=== PATIENT | female | born 1995 | race Caucasian/White ===

== ENCOUNTER 2017-12-10 21:16 | Emergency (ER) | payer BC ==
[2017-12-10] MEDS ORDERED: NA CHLORIDE 0.9% 1,000 ML ONE ×2 (21:54→23:34)
[2017-12-10] MEDS ORDERED: PROMETHAZINE 25 MG/ML VIAL ONE (21:54)
[2017-12-10 22:10] LABS: Absolute Lymphocytes (CBC) 1.6 K/uL (0.7-4.9); Absolute Monocytes 0.5 K/uL (0.1-1.3); Absolute Neutrophil 4.9 K/uL (1.8-8.0); Basophils % 0.3 % (0-1.3); Eosinophils % 0.5 % (0-4.4); Hematocrit 32.9 % (36.0-45.0); Lymphocytes % 22.6 % (15.3-44.8); MCH 33.5 pg (27.0-35.0); MCV 95.5 fL (80-100); MPV 8.9 fL (7.6-11.3); Monocytes % 6.7 % (3.3-12.3); RBC Red Blood Cell Count 3.44 M/uL (3.86-4.86)
[2017-12-10 22:24] LABS: ALT/SGPT 32 U/L (12-78); AST/SGOT 18 U/L (15-37); Albumin 3.2 g/dL (3.4-5.0); Alkaline Phosphatase 52 U/L (45-117); BUN Blood Urea Nitrogen 8 mg/dL (7-18); Bicarbonate 22 mmol/L (21-32); Bilirubin Direct 0.2 mg/dL (0-0.2); Bilirubin Total 0.6 mg/dL (0.2-1.0); Glucose Level 100 mg/dL (74-106); Potassium 3.8 mmol/L (3.5-5.1); Protein, Total 6.2 g/dL (6.4-8.2); Sodium Level 141 mmol/L (136-145)
--- NOTE | 2017-12-11 01:09 | ER ---
Nurse's Notes [facility] Name: Jacey Elias Age: 22 yrs Sex: Female : 1995 Arrival Date: 12/10/2017 Time: 21:22 Bed 16 Private MD: Davon Pastor Diagnosis: Upper abdominal pain, unspecified; state;Vomiting, unspecified Presentation: 12/10 21:35 Presenting complaint: states: she started having really bad abdominal pain kr2 earlier today, she was seen in [facility] twice because she is 27 weeks , they initially thought she was having contractions but then said she was not. They sent us here because she has had weight loss surgery in the past and thought it may be something to do with that. She hasn't had any bleeding or spotting. Transition of care: patient was not received from another setting of care. Onset of symptoms was December 10, 2017. Risk Assessment: Do you want to hurt yourself or someone else? Patient reports no desire to harm self or others. Initial Sepsis Screen: Does the patient meet any 2 criteria? No. Patient's initial sepsis screen is negative. Does the patient have a suspected source of infection? No. Patient's initial sepsis screen is negative. Care prior to arrival: seen by [facility], per , "They told us the baby looked good". 21:35 Method Of Arrival: Wheelchair kr2 21:35 Acuity: RASHAWN 3 kr2 LEAVE COORDINATOR: 21:41 2, Living 0 kr2 Historical: - Allergies: 21:39 No Known Allergies; kr2 - Home Meds: 21:39 Iron CR Oral [Active]; kr2 - PMHx: 21:45 None; cc3 - PSHx: 21:39 weight loss surgery; kr2 - Immunization history:: Adult Immunizations up to date. - Social history:: Smoking status: Patient/guardian denies using tobacco. - Ebola Screening: : No symptoms or risks identified at this time. Screenin:45 Abuse screen: Denies threats or abuse. Denies injuries from another. Nutritional cc3 screening: No deficits noted. Tuberculosis screening: No symptoms or risk factors identified. Fall Risk Ambulatory Aid- None/Bed Rest/Nurse Assist (0 pts). Gait- Normal/Bed Rest/Wheelchair (0 pts) Mental Status- Oriented to own ability (0 pts). Assessment: 21:42 Reassessment: Provider ANTONETTE Ward notified of patient status. kr2 21:45 General: Appears distressed, uncomfortable, Behavior is cooperative. Pain: Complains of cc3 pain in bilateral upper abdominal pain Pain currently is 10 out of 10 on a pain scale. Quality of pain is described as aching. Neuro: Level of Consciousness is awake, alert, obeys commands, Oriented to person, place, time, situation, Appropriate for age. Cardiovascular: Denies chest pain. Respiratory: Airway is patent Respiratory effort is even, unlabored, Respiratory pattern is regular, symmetrical. GI: Abd is soft Abdomen is tender to palpation X 4 quads. : No signs and/or symptoms were reported regarding the genitourinary system. EENT: No signs and/or symptoms were reported regarding the EENT system. Derm: No signs and/or symptoms reported regarding the dermatologic system. Musculoskeletal: Circulation, motion, and sensation intact. Range of motion: intact in all extremities. 21:45 GI: Bowel sounds present X 4 quads. cc3 22:45 Reassessment: Patient appears in no apparent distress at this time. Patient and/or cc3 family updated on plan of care and expected duration. Pain level reassessed. Patient is alert, oriented x 3, equal unlabored respirations, skin warm/dry/pink. 23:10 Reassessment: Patient appears in no apparent distress at this time. Patient and/or cc3 family updated on plan of care and expected duration. Pain level reassessed. Patient is alert, oriented x 3, equal unlabored respirations, skin warm/dry/pink. Patient comfortably sleeping, kept undisturbed. 12/11 00:30 Reassessment: Patient appears in no apparent distress at this time. Patient and/or cc3 family updated on plan of care and expected duration. Pain level reassessed. Patient is alert, oriented x 3, equal unlabored respirations, skin warm/dry/pink. 01:08 Reassessment: Patient appears in no apparent distress at this time. Patient and/or cc3 family updated on plan of care and expected duration. Pain level reassessed. Patient is alert, oriented x 3, equal unlabored respirations, skin warm/dry/pink. Patient for transfer to [facility] for higher level of care. 01:20 Reassessment: Patient appears in no apparent distress at this time. Patient and/or cc3 family updated on plan of care and expected duration. Pain level reassessed. Patient is alert, oriented x 3, equal unlabored respirations, skin warm/dry/pink. Report called to RN Shobha Carey. Called EMS for transport. 02:30 Reassessment: Patient and/or family updated on plan of care and expected duration. Pain cc3 level reassessed. Patient is alert, oriented x 3, equal unlabored respirations, skin warm/dry/pink. [facility] came for transport, patient left ER vitally stable by ambulance stretcher with her . Vital Signs: 12/10 21:41 Resp 20; Temp 98.9(O); Pulse Ox 99% on R/A; Weight 80.29 kg; Height 5 ft. 8 in. (172.72 kr2 cm); Pain 10/10; 22:30 BP 117 / 40; Pulse 66; Resp 20 S; Pulse Ox 99% on R/A; cc3 23:15 BP 108 / 67; Pulse 59; Resp 16 S; Pulse Ox 100% on R/A; Pain 6/10; cc3 12/11 00:03 BP 102 / 66; Pulse 66; Resp 17 S; Pulse Ox 100% on R/A; cc3 01:20 BP 108 / 68; Pulse 61; Resp 17; Pulse Ox 100% on R/A; cc3 02:20 BP 105 / 57; Pulse 60; Resp 18 S; Pulse Ox 98% on R/A; cc3 12/10 21:41 Body Mass Index 26.91 (80.29 kg, 172.72 cm) kr2 ED Course: 12/10 21:22 Patient arrived in ED. am2 21:22 Davon Pastor MD is Private Physician. am2 21:37 Triage completed. kr2 21:39 Mercy Moraes FNP-C [facility]. snw 21:39 Prahsanth Naik MD is Attending Physician. snw 21:43 Cira Arenas is Primary Nurse. cc3 21:45 Arm band placed on left wrist. cc3 21:45 Patient has correct armband on for positive identification. Placed in gown. Bed in low cc3 position. Call light in reach. Side rails up X 1. Adult w/ patient. potline monitor on. Pulse ox on. NIBP on. 21:50 Inserted saline lock: 20 gauge in right antecubital area, using aseptic technique. cc3 Blood collected. 12/11 02:30 No provider procedures requiring assistance completed. Patient transferred, IV remains cc3 in place. Administered Medications: 12/10 21:55 Drug: NS 0.9% 1000 ml Route: IV; Rate: 1 bolus; Site: right antecubital; cc3 23:00 Follow up: Response: No adverse reaction; IV Status: Completed infusion; IV Intake: cc3 1000ml 21:55 Drug: Phenergan 12.5 mg Route: IVP; Site: right antecubital; cc3 23:00 Follow up: Response: No adverse reaction; Vomiting decreased cc3 23:29 Drug: NS 0.9% 1000 ml Route: IV; Rate: 1 bolus; Site: right antecubital; cc3 12/11 00:30 Follow up: Response: No adverse reaction; IV Status: Completed infusion; IV Intake: cc3 1000ml Intake: 12/10 23:00 IV: 1000ml; Total: 1000ml. cc3 12/11 00:30 IV: 1000ml; Total: 2000ml. cc3 Outcome: 01:08 ER care complete, transfer ordered by MD. snw 02:30 Transferred by ground EMS Transfer form completed. Note: [address] 02:30 Condition: stable 02:30 Instructed on the need for transfer, Demonstrated understanding of instructions. 02:41 Patient left the ED. 3 Signatures: Mercy Moraes, SKIP-C DOOR MANAGER-Langw Rosibel Ramos am2 Federica Corrigan, GAUTAM RN [email or web address] Cira Arenas 3 Corrections: (The following items were deleted from the chart) 12/10 21:40 21:35 Presenting complaint: states: she started having really bad abdominal kr2 pain earlier today, she was seen in [facility] twice, they initially thought she was having contractions but then said she was not. They sent us here because she has had weight loss surgery in the past and thought it may be something to do with that. She hasn't had any bleeding or spotting kr2 21:42 21:41 2, Living 0 kr2 kr2 11/01 01:59 01:20 Reassessment: Patient appears in no apparent distress at this time. Patient cc3 and/or family updated on plan of care and expected duration. Pain level reassessed. Patient is alert, oriented x 3, equal unlabored respirations, skin warm/dry/pink. Report called to GAUTAM Carey. cc3 02:00 12/10 00:10 Reassessment: Patient appears in no apparent distress at this time. Patient cc3 and/or family updated on plan of care and expected duration. Pain level reassessed. Patient is alert, oriented x 3, equal unlabored respirations, skin warm/dry/pink. cc3 12/11 02:55 02:30 Reassessment: Patient and/or family updated on plan of care and expected cc3 duration. Pain level reassessed. Patient is alert, oriented x 3, equal unlabored respirations, skin warm/dry/pink. [facility] came for transport. cc3 02:57 12/10 23:15 BP 108 / 67; Pulse 59bpm; Resp 16bpm; Spontaneous; Pulse Ox 100% RA; cc3 cc3
--- NOTE | 2017-12-11 01:09 | EDPHYS ---
Physician Documentation [facility] Name: Jacey Elias Age: 22 yrs Sex: Female : 1995 Arrival Date: 12/10/2017 Time: 21:22 Bed 16 Private MD: Davon Pastor ED Physician Prashanth Naik HPI: 12/10 23:10 This 22 yrs old Female presents to ER via Wheelchair with complaints of snw Abdominal Pain, Vomiting - . 23:10 The patient presents with abdominal pain in the epigastric area. Onset: The snw symptoms/episode began/occurred gradually. The symptoms do not radiate. The symptoms are described as crampy, steady. Severity of pain: At its worst the pain was moderate. The patient has experienced a previous episode. 27 wk IUP, feeling baby move. No vaginal bleeding or discharge. No fever. Pt has had gastric surgery in the past and had a complication x 1. Concerned for recurrence of problem but I am unable to CT pt second to . VISCOSITY INSPECTOR: 21:41 2, Living 0 kr2 Historical: - Allergies: 21:39 No Known Allergies; kr2 - Home Meds: 21:39 Iron CR Oral [Active]; kr2 - PMHx: 21:45 None; cc3 - PSHx: 21:39 weight loss surgery; kr2 - Immunization history:: Adult Immunizations up to date. - Social history:: Smoking status: Patient/guardian denies using tobacco. - Ebola Screening: : No symptoms or risks identified at this time. ROS: 23:09 Constitutional: Negative for fever, chills, and weight loss, Eyes: Negative for injury, snw pain, redness, and discharge, ENT: Negative for injury, pain, and discharge, Neck: Negative for injury, pain, and swelling, Cardiovascular: Negative for chest pain, palpitations, and edema, Respiratory: Negative for shortness of breath, cough, wheezing, and pleuritic chest pain, Back: Negative for injury and pain, : Negative for injury, bleeding, discharge, and swelling, MS/Extremity: Negative for injury and deformity, Skin: Negative for injury, rash, and discoloration, Neuro: Negative for headache, weakness, numbness, tingling, and seizure. 23:09 Abdomen/GI: Positive for abdominal pain, nausea and vomiting. Exam: 22:40 Abdomen/GI: vomiting s/p phenergan with c/o upper abdominal pain, curled in ball on snw stretcher. Pale. 2nd Liter NS ordered. 23:09 Head/Face: Normocephalic, atraumatic. Eyes: Pupils equal round and reactive to light, snw extra-ocular motions intact. Lids and lashes normal. Conjunctiva and sclera are non-icteric and not injected. Cornea within normal limits. Periorbital areas with no swelling, redness, or edema. ENT: Nares patent. No nasal discharge, no septal abnormalities noted. Tympanic membranes are normal and external auditory canals are clear. Oropharynx with no redness, swelling, or masses, exudates, or evidence of obstruction, uvula midline. Mucous membranes moist. Neck: Trachea midline, no thyromegaly or masses palpated, and no cervical lymphadenopathy. Supple, full range of motion without nuchal rigidity, or vertebral point tenderness. No Meningismus. Chest/axilla: Normal chest wall appearance and motion. Nontender with no deformity. No lesions are appreciated. Cardiovascular: Regular rate and rhythm with a normal S1 and S2. No gallops, murmurs, or rubs. Normal PMI, no JVD. No pulse deficits. Respiratory: Lungs have equal breath sounds bilaterally, clear to auscultation and percussion. No rales, rhonchi or wheezes noted. No increased work of breathing, no retractions or nasal flaring. 23:09 Back: No spinal tenderness. No costovertebral tenderness. Full range of motion. MS/ Extremity: Pulses equal, no cyanosis. Neurovascular intact. Full, normal range of motion. Neuro: Awake and alert, GCS 15, oriented to person, place, time, and situation. Cranial nerves II-XII grossly intact. Motor strength 5/5 in all extremities. Sensory grossly intact. Cerebellar exam normal. Normal gait. Psych: Awake, alert, with orientation to person, place and time. Behavior, mood, and affect are within normal limits. 23:09 Constitutional: The patient appears alert, anxious, pale, restless, uncomfortable. 23:09 Abdomen/GI: Inspection: gravid appearance, is noted, Bowel sounds: normal. 23:09 Skin: Appearance: Color: pale, Temperature: normal temperature, Moisture: normal moisture. Vital Signs: 21:41 Resp 20; Temp 98.9(O); Pulse Ox 99% on R/A; Weight 80.29 kg; Height 5 ft. 8 in. (172.72 kr2 cm); Pain 10/10; 22:30 BP 117 / 40; Pulse 66; Resp 20 S; Pulse Ox 99% on R/A; cc3 23:15 BP 108 / 67; Pulse 59; Resp 16 S; Pulse Ox 100% on R/A; Pain 6/10; cc3 12/11 00:03 BP 102 / 66; Pulse 66; Resp 17 S; Pulse Ox 100% on R/A; cc3 01:20 BP 108 / 68; Pulse 61; Resp 17; Pulse Ox 100% on R/A; cc3 02:20 BP 105 / 57; Pulse 60; Resp 18 S; Pulse Ox 98% on R/A; cc3 12/10 21:41 Body Mass Index 26.91 (80.29 kg, 172.72 cm) kr2 MDM: 12/10 21:41 Patient medically screened. snw 12/11 00:55 Data reviewed: vital signs, nurses notes, lab test result(s). Data interpreted: Pulse snw oximetry: on room air is 100 %. Counseling: I had a detailed discussion with the patient and/or guardian regarding: the historical points, exam findings, and any diagnostic results supporting the discharge/admit diagnosis, lab results, the need to transfer to another facility, [facility] does not immediately have the required specialist. Physician consultation: Prashanth Naik MD after a discussion of the case, a recommendation for transfer for higher level of care is made, Spoke with the director of hotel operations Bariatric Surgeon director of hotel operations for Dr. Ames, she would like transfer to be ED to ED in case the problem turns out to be OB related as opposed to Bariatric Surgery related. Transfer center will call back. Pt family notified of plan of care. 01:06 Physician consultation: Dr Pool was contacted at 01:06, regarding regarding snw transfer, patient's condition. 12/10 21:41 Order name: CBC with Diff; Complete Time: 22:22 snw 12/10 21:41 Order name: Chem 7; Complete Time: 02:42 snw 12/10 21:41 Order name: LFT's; Complete Time: 02:42 snw 12/11 00:34 Order name: LD OB ASSESSMENT/ PER DAY EDMS 12/11 01:22 Order name: Urine Dipstick--Ancillary (enter results) em 12/11 01:26 Order name: Lipase; Complete Time: 02:42 EDMS 12/11 01:55 Order name: Urine Microscopic Only; Complete Time: 02:42 EDMS 12/11 01:55 Order name: Urine Culture EDMS 12/11 01:05 Order name: Urine Dipstick-Ancillary (obtain specimen); Complete Time: 01:40 snw Administered Medications: 12/10 21:55 Drug: NS 0.9% 1000 ml Route: IV; Rate: 1 bolus; Site: right antecubital; cc3 23:00 Follow up: Response: No adverse reaction; IV Status: Completed infusion; IV Intake: cc3 1000ml 21:55 Drug: Phenergan 12.5 mg Route: IVP; Site: right antecubital; cc3 23:00 Follow up: Response: No adverse reaction; Vomiting decreased cc3 23:29 Drug: NS 0.9% 1000 ml Route: IV; Rate: 1 bolus; Site: right antecubital; cc3 12/11 00:30 Follow up: Response: No adverse reaction; IV Status: Completed infusion; IV Intake: cc3 1000ml Disposition: 06:55 Co-signature as Attending Physician, Prashanth Naik MD I agree with the assessment and wa plan of care. Disposition: 12/11/17 01:08 Transfer ordered to Other Acute Care Facility. Diagnosis are Upper abdominal pain, unspecified, state, Vomiting, unspecified. - Reason for transfer: Higher level of care. - Accepting physician is Dr. Pool. - Condition is Stable. - Problem is an acute exacerbation. - Symptoms have worsened. Signatures: Dispatcher [employer] [facility] Mercy Moraes, GREENHOUSE SUPERINTENDENT-C GREENHOUSE SUPERINTENDENT-Csnw Prashanth Naik MD MD wa Reaves, Karey, RN RN kr2 Cira Arenas cc3 Corrections: (The following items were deleted from the chart) 02:41 01:08 12/11/2017 01:08 Transfer ordered to Other Acute Care Facility. Diagnosis is cc3 Upper abdominal pain, unspecified; state; Vomiting, unspecified. Reason for transfer: Higher level of care. Accepting physician is Dr. Pool. Condition is Stable. Problem is an acute exacerbation. Symptoms have worsened. snw
[2017-12-11 01:53] LABS: Lipase 128 U/L (73-393)
[2017-12-11 02:18] LABS: Urine Bacteria >50 /HPF (<20); Urine Culture Reflex Order NOT NEEDED; Urine Mucus HEAVY /HPF (NONE SEEN); Urine RBC NONE SEEN /HPF (NONE SEEN)
[2017-12-11 03:39] VITALS: TEMP 98.9
[2017-12-11 03:42] VITALS: O2SAT 100
[2017-12-11 03:44] VITALS: BP 108/68
[2017-12-11 04:45] LABS: Urine Blood NEGATIVE (NEG); Urine Glucose NEGATIVE (NEG); Urine Protein 1+ (NEG); Urine Specific Gravity >1.030 (1.005-1.030)
== END 2017-12-11 02:41 ==
LOC: ER 21:16
DX: O21.9 Vomiting of pregnancy, unspecified (principal); Z3A.27 27 weeks gestation of pregnancy
CPT/HCPCS: 36415; 80048; 80076; 81003; 81015; 83690; 85025; 87086; 87088; 96361; 96374; 99218; 99285; J2550; J7030

== ENCOUNTER 2018-02-18 10:16 | Inpatient (IN) | payer BC ==
--- OUTSIDE RECORDS SUMMARY | 2018-02-18 20:41 | XMS REPORT ---
:1995 Author Organization eClinicalWorks Care Team Providers Name Role Phone Aly Brandt Provider Role Unavailable Allergies No Known Allergies Problems Problem Type Condition Code Onset Dates Condition Status Assessment Supervision of high risk O09.92 Active in second trimester Problem in prior , O09.299 Active currently Assessment in prior , O09.299 Active currently Assessment Anemia affecting in O99.012 Active second trimester Assessment Bariatric surgery status O99.842 Active complicating , second trimester Problem Anemia affecting in O99.012 Active second trimester Problem Supervision of high risk O09.92 Active in second trimester Problem Bariatric surgery status O99.842 Active complicating , second trimester Problem Encounter for supervision of Z34.91 Active low-risk in first trimester Problem Encounter to determine O36.80X0 Active viability of , single or unspecified fetus Problem Bariatric surgery status O99.841 Active complicating , first trimester Problem Supervision of high risk O09.91 Active in first trimester Medications Medication Code Code Instructions Start End Status Dosage System Date Date CitraNatal 90 [facility] [id number] 90-1 & 300 MG Active as directed DHA Orally 1 Apri [facility] [id number] 0.15-30 MG-MCG Apr 02, Inactive 1 tablet Orally Once a 2017 day Ferralet 90 [facility] [id number] 90-1 MG Orally Active 1 tablet Once a day Results No Known Results Summary Purpose eClinicalWorks Submission
--- OUTSIDE RECORDS SUMMARY | 2018-02-18 20:41 | XMS REPORT ---
:1995 Author Organization eClinicalWorks Care Team Providers Name Role Phone Aly Brandt Provider Role Unavailable Allergies No Known Allergies Problems Problem Type Condition Code Onset Dates Condition Status Problem Supervision of high risk O09.91 Active in first trimester Problem Encounter to determine O36.80X0 Active viability of , single or unspecified fetus Problem in prior , O09.299 Active currently Assessment Supervision of high risk O09.93 Active in third trimester Problem Encounter for supervision of Z34.91 Active low-risk in first trimester Problem Supervision of high risk O09.93 Active in third trimester Problem Anemia complicating in O99.013 Active third trimester Problem Bariatric surgery status O99.843 Active complicating , third trimester Problem Bariatric surgery status O99.842 Active complicating , second trimester Problem Bariatric surgery status O99.841 Active complicating , first trimester Problem Anemia affecting in O99.012 Active second trimester Problem Supervision of high risk O09.92 Active in second trimester Medications Medication Code Code Instructions Start End Status Dosage System Date Date CitraNatal 90 [facility] [id number] 90-1 & 300 MG Active as directed DHA Orally 1 Ferralet 90 [facility] [id number] 90-1 MG Orally Active 1 tablet Once a day Results No Known Results Immunizations Vaccine Administration Date TDAP > 7 Years-Adacel Feb 11, 2018 Summary Purpose eClinicalWorks Submission
--- OUTSIDE RECORDS SUMMARY | 2018-02-18 20:41 | XMS REPORT ---
:1995 Author Organization eClinicalWorks Care Team Providers Name Role Phone KaelynAly gonsalves Provider Role Unavailable Allergies No Known Allergies [...] Start End Status Dosage System Date Date Ferralet 90 [facility] [id number] 90-1 MG Orally Active 1 tablet Once a day CitraNatal 90 [place] [id number] 90-1 & 300 MG Active as directed DHA Orally 1 Results No Known Results Summary Purpose eClinicalWorks Submission
--- OUTSIDE RECORDS SUMMARY | 2018-02-18 20:41 | XMS REPORT ---
:1995 Author Organization eClinicalWorks Care Team Providers Name Role Phone Aly Brandt Provider Role Unavailable Allergies No Known Allergies Problems Problem Type Condition Code Onset Dates Condition Status Problem in prior , O09.299 Active currently Problem Anemia affecting in O99.012 Active second [...] risk O09.91 Active in first trimester Medications No Known Medications Results No Known Results Summary Purpose eClinicalWorks Submission
--- OUTSIDE RECORDS SUMMARY | 2018-02-18 20:41 | XMS REPORT ---
:1995 Author Organization eClinicalWorks Care Team Providers Name Role Phone Aly Brandt Provider Role Unavailable Allergies, Adverse Reactions, Alerts Substance Reaction Event Type N.K.D.A. Info Not Available Non Drug Allergy Problems Problem Type Condition Code Onset Dates [...] Start End Status Dosage System Date Date [facility] [id number] 0.15-30 MG-MCG Apr 02, Active 1 tablet Orally Once a 2017 day CitraNatal 90 [facility] [id number] 90-1 & 300 MG Oct 01, Active as directed DHA Orally 2017 Ferralet 90 [facility] [id number] 90-1 MG Orally Oct 01, Active 1 tablet Once a day 2017 Results No Known Results Summary Purpose eClinicalWorks Submission
[2018-02-18] MEDS ORDERED: PROMETHAZINE 25 MG/ML VIAL IV PRN (20:49)
[2018-02-18] MEDS ORDERED: MEPERIDINE HCL 25 MG/0.5 ML IV PRN (20:49)
[2018-02-18] MEDS ORDERED: CARBOPROST TROME 250 MCG/ML IM PRN (20:49)
[2018-02-18] MEDS ORDERED: BUTORPHANOL 1 MG/ML INJ IV PRN (20:49)
[2018-02-18] MEDS ORDERED: METHYLERGONOVINE 0.2MG/ML AMP IM PRN (20:49)
[2018-02-18] MEDS ORDERED: Ringers Lactate 1,000 ML IV PRN (20:49)
[2018-02-18] MEDS ORDERED: MIDAZOLAM HCL 2 MG/2 ML INJ IV PRN (20:49)
[2018-02-18] MEDS ORDERED: Ringers Lactate 1,000 ML IV SCH (21:00)
[2018-02-18] MEDS ORDERED: OXYTOCIN/LR 20 UNIT/1,000 ML BAG IV SCH (21:00)
[2018-02-18 21:15] LABS: RPR Titer ND
[2018-02-18 21:19] LABS: Urine Appearance CLEAR; Urine Bilirubin NEGATIVE (NEG); Urine Blood TRACE (NEG); Urine Color YELLOW; Urine Glucose NEGATIVE (NEG); Urine Protein NEGATIVE (NEG); Urine Specific Gravity <=1.005 (1.005-1.030)
[2018-02-18 21:20] LABS: Absolute Lymphocytes (CBC) 1.7 K/uL (0.7-4.9); Absolute Monocytes 0.6 K/uL (0.1-1.3); Basophils % 0.6 % (0-1.3); Eosinophils % 0.8 % (0-4.4); Hematocrit 33.6 % (36.0-45.0); Lymphocytes % 22.6 % (15.3-44.8); MPV 9.5 fL (7.6-11.3); RBC Red Blood Cell Count 3.49 M/uL (3.86-4.86)
[2018-02-18 21:26] LABS: Urine Microscopic Reflex ORDER UMIC
[2018-02-18 21:33] LABS: Urine Bacteria <20 /HPF (<20)
[2018-02-18 21:34] LABS: Urine Culture Reflex Order NOT NEEDED
[2018-02-18] MEDS ORDERED: miSOPROStol 100 MCG TAB VAG SCH (22:00)
[2018-02-18] MEDS ORDERED: ZOLPIDEM TARTRATE 5 MG TABLET ONE (22:07)
[2018-02-18 22:15] VITALS: BMI 27.8
[2018-02-18 22:23] LABS: RPR (Rapid Plasma Reagin) NON-REACT (NON-REACT)
[2018-02-19] MEDS ORDERED: FENTANYL CITR 100 MCG/2 ML IV ONE (08:38)
[2018-02-19] MEDS ORDERED: FENTANYL/BUPIVACAINE/NS/PF 200 MCG/100 ML BAG EP PRN (08:38)
[2018-02-19] MEDS ORDERED: BUPIVACAINE 0.25% PF 10 ML VIAL IV ONE (08:39)
[2018-02-19] MEDS ORDERED: METOCLOPRAMIDE 10 MG/2mL INJ ONE (13:25)
[2018-02-19] MEDS ORDERED: NA CIT/CITRIC AC 30 ML ORAL UDC ONE (13:26)
[2018-02-19] MEDS ORDERED: FAMOTIDINE 20 MG/2 ML VIAL IV ONE (13:26)
[2018-02-19] MEDS ORDERED: CEFAZOLIN 2GM (PREMIX IV) 0 GM/0 ML BAG ONE (13:27)
[2018-02-19] MEDS ORDERED: METHYLERGONOVINE 0.2MG/ML AMP IM ONE (13:37)
[2018-02-19] MEDS ORDERED: LIDOCAINE 1% MPF 30 ML VIAL ONE (13:37)
[2018-02-19] MEDS ORDERED: CARBOPROST TROME 250 MCG/ML IM ONE (13:37)
[2018-02-19] MEDS ORDERED: ACETAMINOPHEN 500 MG TAB PO PRN (13:59)
[2018-02-19] MEDS ORDERED: METHYLERGONOVINE 0.2 MG TAB PO PRN (13:59)
--- NOTE | 2018-02-19 14:00 | P.OP ---
Date of Service: 02/19/18 Findings and Operative Technique Jacey delivered a viable female in cephalic presentation on rate 2018 at 1:30 p.m. was delivered over midline episiotomy. Once the was delivered nose and mouth were suctioned with a suction bulb. Cord was clamped and cut. Infant was placed on mother's abdomen for skin to skin bonding. Pediatrics was present for delivery and evaluated the . Cord blood was obtained. Attention was then turned to the placenta which was delivered with gentle traction at 1:32 p.m.. Placenta will be sent to pathology due to the high-risk condition of patient is . Attention was then turned to the midline episiotomy which was noted to be a second-degree and this was repaired with a 2 0 Vicryl in the usual fashion. Uterine massage was performed. Uterus was found to be firm. Both mom and baby are doing well. Patient plans to breastfeed. Apgars were found to be 8 and 8. Weight was found to be 6 lb 3 oz. 1st stage of labor was 3 hr and 27 min. 2nd stage was 7 min. EBL was 250 cc. No other issues.
[2018-02-19] MEDS: IBUPROFEN 200 MG TAB PO PRN (20:14)
[2018-02-19] MEDS ORDERED: ZOLPIDEM TARTRATE 5 MG TABLET PO SCH (21:00)
[2018-02-20] MEDS: Oxycodone HCl/Acetaminophen 1 TAB TAB PO PRN ×2 (03:28→16:11)
[2018-02-20] MEDS: IBUPROFEN 200 MG TAB PO PRN ×2 (04:37→11:07)
[2018-02-20 07:06] LABS: Basophils % 0.2 % (0-1.3); Eosinophils % 0.8 % (0-4.4); Lymphocytes % 8.6 % (15.3-44.8); MPV 9.7 fL (7.6-11.3); RBC Red Blood Cell Count 3.31 M/uL (3.86-4.86)
[2018-02-20 07:07] LABS: Absolute Lymphocytes (CBC) 0.9 K/uL (0.7-4.9)
[2018-02-20 13:38] VITALS: BP 115/64; TEMP 98.8
[2018-02-23 04:00] LABS: HBsAG Nonreactive (Nonreactive)
--- NOTE | 2018-02-24 11:39 | P.DS ---
Admission Date: 02/18/18 Discharge Date: 02/20/18 Disposition: ROUTINE DISCHARGE Discharge Condition: GOOD Brief History of Present Illness: The patient is a 22-year-old 2 para 1000 who was admitted at 36 weeks and 6 days gestation for cervical ripening to accomplish delivery by 37 weeks gestation as per [facility] recommendation.. Patient has been compliant with care care has been complicated by history of bariatric surgery the and she had a demise. Patient has been seen by high risk for this . She had noninvasive testing done which revealed low risk female. AFP was negative. Patient has a history of bariatric surgery which is complicated her leading to significant weight loss and inability to tolerate food. She also has a prior that led to in 2018. Patient has been seen by high-risk maternal medicine specialist and delivery was recommended to be performed at 37 weeks gestation. Patient will receive Cytotec vaginally to begin cervical ripening tonight and then tomorrow we will begin the labor augmentation process with Pitocin and rupture of membranes. Continuous maternal monitoring be performed pediatrics will be notified. Epidural will be placed at patient's request. Hospital Course: Patient delivered vaginally. She is doing well following delivery of the baby. Her pain has been well controlled. Her bleeding is minimal. She is tolerating a regular diet. She is ambulating without difficulty. She is voiding without difficulty. She denies chest pain. No shortness of breath. She is breast-feeding the baby and bonding well with the baby. Vital Signs/Physical Exam: Temp Pulse Resp BP Pulse Ox 98.8 F 80 16 115/64 02/20/18 13:00 02/20/18 13:00 02/20/18 13:00 02/20/18 13:00 General: Alert, In no apparent distress, Oriented x3 HEENT: Atraumatic Neck: Supple Respiratory: Normal air movement Cardiovascular: No edema, Normal pulses Gastrointestinal: Other (Fundus firm palpable beneath umbilicus) Musculoskeletal: No clubbing, No swelling Integumentary: No rashes, No breakdown Neurological: Normal gait, Normal speech Laboratory Data at Discharge: WBC 9.9 K/uL (4.3-10.9) D 02/20/18 06:30 Hgb 11.2 g/dL (12.0-15.0) L 02/20/18 06:30 Hct 31.0 % (36.0-45.0) L 02/20/18 06:30 Plt Count 156 K/uL (152-406) 02/20/18 06:30 Home Medications: Vits #33/Iron/FA/Dha [Select-Ob + Dha Pack] 1 cap PO DAILY 12/21/16 Diet: Regular Activity: No lifting more than 10 lbs Followup: Aly Brandt, [ACTIVE - CAN ADMIT] - (Follow up in Dr. Brandt's office in 6 weeks after delivery. )
== END 2018-02-20 16:50 | disposition home or self-care (01) | DRG 807 ==
LOC: 2ND-WC 20:39
PROVIDERS: ADMIT Student in an Organized Health Care Education/Training Program; ATTEND Student in an Organized Health Care Education/Training Program
PROC: 3E0P7VZ Introduction of Hormone into Female Reproductive, Via Natural or Artificial Opening (ICD-10-PCS; principal; 2018-02-18)
PROC: 10E0XZZ Delivery of Products of Conception, External Approach (ICD-10-PCS; 2018-02-19)
PROC: 0W8NXZZ Division of Female Perineum, External Approach (ICD-10-PCS; 2018-02-19)
DX: O99.844 Bariatric surgery status complicating childbirth (principal); Z37.0 Single live birth; Z3A.36 36 weeks gestation of pregnancy
CPT/HCPCS: 36415; 81003; 81015; 85025; 86592; 86901; 87340; 88307; J0690; J2210; J2590; J2765; J3010

== ENCOUNTER 2018-07-07 15:53 | Emergency (ER) | payer BC ==
--- OUTSIDE RECORDS SUMMARY | 2018-07-07 15:55 | XMS REPORT ---
[...] Status Dosage System Date Date CitraNatal [address] [facility] [id number] 90-1 & 300 MG Active as directed DHA Orally [address] [facility] [id number] 0.15-30 MG-MCG Apr 02, Inactive 1 tablet Orally Once a [address] [facility] [id number] 90-1 MG Orally Active 1 tablet Once a day Results No Known Results Summary Purpose eClinicalWorks Submission
--- OUTSIDE RECORDS SUMMARY | 2018-07-07 15:55 | XMS REPORT ---
[...] Start End Status Dosage System Date Date [facility] [id number] 0.15-30 MG-MCG Apr 02, Active 1 tablet Orally Once a 2017 day CitraNatal 90 [facility] [id number] 90-1 & 300 MG Oct 01, Active as directed DHA Orally 2017 Ferralet 90 [facility] [id number] 90-1 MG Orally Oct 01, Active 1 tablet Once a day 2017 Results No Known Results Summary Purpose eClinicalWorks Submission
--- OUTSIDE RECORDS SUMMARY | 2018-07-07 15:56 | XMS REPORT ---
[...] Status Dosage System Date Date CitraNatal 90 [facility] [id number] 90-1 & 300 MG Active as directed DHA Orally 1 Ferralet 90 [facility] [id number] 90-1 MG Orally Active 1 tablet Once a day Results No Known Results Immunizations Vaccine Administration Date TDAP > 7 Years-Adacel Feb 11, 2018 Summary Purpose eClinicalWorks Submission
--- OUTSIDE RECORDS SUMMARY | 2018-07-07 15:56 | XMS REPORT ---
:1995 Author Organization eClinicalWorks Care Team Providers Name Role Phone Aly Brandt Provider Role Unavailable Allergies No Known Allergies Problems Problem Type Condition Code Onset Dates Condition Status Problem in prior , O09.299 Active currently Problem Bariatric surgery status O99.841 Active complicating , first trimester Problem Encounter to determine O36.80X0 Active viability of , single or unspecified fetus Problem Bariatric surgery status O99.843 Active complicating , third trimester Problem Supervision of high risk O09.93 Active in third trimester Problem Hypoglycemia E16.2 Active Problem Supervision of high risk O09.92 Active in second trimester Problem Bariatric surgery status O99.842 Active complicating , second trimester Problem Anemia complicating in O99.013 Active third trimester Problem Anemia affecting in O99.012 Active second trimester Assessment Hypoglycemia E16.2 Active Assessment Supervision of high risk O09.93 Active in third trimester Assessment in prior , O09.299 Active currently Problem Encounter for supervision of Z34.91 Active low-risk in first trimester Assessment Bariatric surgery status O99.843 Active complicating , third trimester Problem Supervision of high risk O09.91 Active in first trimester Medications Medication Code Code Instructions Start End Status Dosage System Date Date CitraNatal 90 [facility] [id number] 90-1 & 300 MG Active as directed DHA Orally 1 Ferralet 90 [facility] [id number] 90-1 MG Orally Active 1 tablet Once a day Results No Known Results Summary Purpose eClinicalWorks Submission
--- OUTSIDE RECORDS SUMMARY | 2018-07-07 15:56 | XMS REPORT ---
[...] Status Dosage System Date Date Ferralet 90 [facility] [id number] 90-1 MG Orally Active 1 tablet Once a day CitraNatal 90 [place] [id number] 90-1 & 300 MG Active as directed DHA Orally 1 Results No Known Results Summary Purpose eClinicalWorks Submission
[2018-07-07] MEDS ORDERED: KETOROLAC 30 MG/ML INJ ONE (16:47)
[2018-07-07] MEDS ORDERED: DIAZEPAM 5 MG TABLET ONE (16:47)
[2018-07-07] MEDS ORDERED: DEXAMETHASONE 10 MG/ML VIAL ONE (16:47)
--- NOTE | 2018-07-07 18:02 | RAD REPORT ---
EXAM DESCRIPTION: CT - Spine Lumbar Wo Con - 07/07/2018 5:48 pm CLINICAL HISTORY: Radiculopathy. LOWER BACK PAIN COMPARISON: <Comparisons> TECHNIQUE: Axial noncontrast CT imaging of the lumbar spine was performed with coronal and sagittal re-formatted images. All CT scans are performed using dose optimization technique as appropriate and may include automated exposure control or mA/KV adjustment according to patient size. FINDINGS: No acute lumbar spine fracture seen. No aggressive marrow pattern or malalignment. Paraspinal tissues are normal in thickness. No paraspinal abscess or hematoma seen. Intervertebral disc disease assessment is inherently limited by CT. Within these limitations, no high -grade canal stenosis suspected. IMPRESSION: Negative examination. Consider MRI follow-up for assessment of disc disease if clinically desired.
--- NOTE | 2018-07-07 18:13 | EDPHYS ---
Physician Documentation [facility] Name: Jacey Elias Age: 23 yrs Sex: Female : 1995 Arrival Date: 07/07/2018 Time: 15:56 Bed 5 Private MD: Davon Pastor ED Physician Wilfrid Coyle HPI: 07/07 18:29 This 23 yrs old Female presents to ER via Wheelchair with complaints of Back kb Pain. 18:29 The patient presents with pain that is acute, and tenderness. The symptoms are located kb in the low back. Onset: The symptoms/episode began/occurred just prior to arrival. The pain does not radiate. Associated signs and symptoms: The patient has no apparent associated signs or symptoms. The problem was sustained when bending over. Modifying factors: The patient symptoms are alleviated by nothing, the patient symptoms are aggravated by any movement. Severity of symptoms: At their worst the symptoms were moderate, in the emergency department the symptoms are unchanged. The patient has not experienced similar symptoms in the past. The patient has not recently seen a physician. 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 States she hasn't been able to straighten back out since then. COUNTERPERSON: 16:00 LMP 06/23/2018 hb Historical: - Allergies: 16:00 No Known Allergies; hb - PMHx: 16:00 None; hb - PSHx: 16:00 weight loss surgery; hb - Immunization history:: Adult Immunizations up to date. - Social history:: Smoking status: Patient/guardian denies using tobacco. - Ebola Screening: : No symptoms or risks identified at this time. ROS: 18:28 Constitutional: Negative for fever, chills, and weight loss, Cardiovascular: Negative kb for chest pain, palpitations, and edema, Respiratory: Negative for shortness of breath, cough, wheezing, and pleuritic chest pain, Abdomen/GI: Negative for abdominal pain, nausea, vomiting, diarrhea, and constipation, : Negative for injury, bleeding, discharge, and swelling, MS/Extremity: Negative for injury and deformity, Skin: Negative for injury, rash, and discoloration, Neuro: Negative for headache, weakness, numbness, tingling, and seizure. 18:28 Back: Positive for pain at rest, pain with movement, of the lumbar area. Exam: 18:28 Constitutional: This is a well developed, well nourished patient who is awake, alert, kb and in no acute distress. Head/Face: Normocephalic, atraumatic. Chest/axilla: Normal chest wall appearance and motion. Nontender with no deformity. No lesions are appreciated. Cardiovascular: Regular rate and rhythm with a normal S1 and S2. No gallops, murmurs, or rubs. Normal PMI, no JVD. No pulse deficits. Respiratory: Lungs have equal breath sounds bilaterally, clear to auscultation and percussion. No rales, rhonchi or wheezes noted. No increased work of breathing, no retractions or nasal flaring. Abdomen/GI: Soft, non-tender, with normal bowel sounds. No distension or tympany. No guarding or rebound. No evidence of tenderness throughout. Skin: Warm, dry with normal turgor. Normal color with no rashes, no lesions, and no evidence of cellulitis. MS/ Extremity: Pulses equal, no cyanosis. Neurovascular intact. Full, normal range of motion. Neuro: Awake and alert, GCS 15, oriented to person, place, time, and situation. Cranial nerves II-XII grossly intact. Motor strength 5/5 in all extremities. Sensory grossly intact. Cerebellar exam normal. Normal gait. 18:28 Back: pain, that is moderate, of the lumbar area, ROM is decreased, with extension, normal spinal alignment noted. Vital Signs: 16:00 BP 133 / 69; Pulse 99; Resp 16; Temp 98.6; Pulse Ox 100% on R/A; Weight 77.11 kg; hb Height 5 ft. 7 in. (170.18 cm); Pain 8/10; 17:30 BP 103 / 45; Pulse 66; Resp 17; Pulse Ox 99% on R/A; Pain 7/10; tw2 16:00 Body Mass Index 26.63 (77.11 kg, 170.18 cm) hb MDM: 16:07 Patient medically screened. kb 18:28 Data reviewed: vital signs, nurses notes. Data interpreted: Pulse oximetry: on room air kb is 99 %. Interpretation: normal. Counseling: I had a detailed discussion with the patient and/or guardian regarding: the historical points, exam findings, and any diagnostic results supporting the discharge/admit diagnosis, radiology results, the need for outpatient follow up, a family practitioner, to return to the emergency department if symptoms worsen or persist or if there are any questions or concerns that arise at home. 18:29 ED course: Pt able to straighten out after medications. Pain is decreased. kb 07/07 16:26 Order name: Test, Serum; Complete Time: 17:18 kb 07/07 17:18 Order name: CT Lumbar Spine Wo Con; Complete Time: 18:07 kb 07/07 16:26 Order name: IV Start; Complete Time: 16:43 kb Administered Medications: 16:30 Drug: Valium 5 mg Route: PO; tw2 17:29 Follow up: Response: No adverse reaction; Pain is decreased tw2 16:32 Drug: TORadol 30 mg Route: IVP; Site: right antecubital; tw2 17:29 Follow up: Response: No adverse reaction; Pain is decreased tw2 16:40 Drug: Decadron - Dexamethasone 10 mg Route: IVP; Site: right antecubital; tw2 17:29 Follow up: Response: No adverse reaction tw2 Disposition: 07/08 07:14 Co-signature as Attending Physician, Wilfrid Coyle MD I agree with the assessment and edi plan of care. Disposition: 07/07/18 18:12 Discharged to Home. Impression: Low back pain. - Condition is Stable. - Discharge Instructions: Back Injury Prevention, [id number], Back Pain, Adult, [id number]. - Prescriptions for Cyclobenzaprine 10 mg Oral Tablet - take 1 tablet by ORAL route every 8 hours As needed; 21 tablet. Diclofenac Sodium 75 mg Oral Tablet, Delayed Release (E.C.) - take 1 tablet by ORAL route 2 times per day As needed; 30 tablet. - Medication Reconciliation Form, Thank You Letter, Antibiotic Education, Prescription Opioid Use, Family Work Release form. - Follow up: Emergency Department; When: As needed; Reason: Worsening of condition. Follow up: Private Physician; When: 2 - 3 days; Reason: Recheck today's complaints, Continuance of care, Re-evaluation by your physician. Signatures: Dispatcher [employer] Liz Monterroso, RAMONA VALDIVIA-Wiflrid Rouse MD MD cha Smirch, Shelby, RN RN ss Baxter, Heather, RN RN Le Morel RN RN tw2 Corrections: (The following items were deleted from the chart) 07/07 18:47 18:12 07/07/2018 18:12 Discharged to Home. Impression: Low back pain. Condition is ss Stable. Forms are Family Work Release, Medication Reconciliation Form, Thank You Letter, Antibiotic Education, Prescription Opioid Use. Follow up: Emergency Department; When: As needed; Reason: Worsening of condition. Follow up: Private Physician; When: 2 - 3 days; Reason: Recheck today's complaints, Continuance of care, Re-evaluation by your physician. kb
--- NOTE | 2018-07-07 18:13 | ER ---
Nurse's Notes 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 Transition of care: patient was not received from another setting of care. Onset of symptoms was July 07, 2018 at 14:00. Risk Assessment: Do you want to hurt yourself or someone else? Patient reports no desire to harm self or others. Initial Sepsis Screen: Does the patient meet any 2 criteria? No. Patient's initial sepsis screen is negative. Does the patient have a suspected source of infection? No. Patient's initial sepsis screen is negative. Care prior to arrival: Medication(s) given: Motrin, at 1500. 15:59 Method Of Arrival: Wheelchair hb 15:59 Acuity: RASHAWN 3 hb SEO ASSOCIATE: 16:00 LMP 06/23/2018 hb Historical: - Allergies: 16:00 No Known Allergies; hb - PMHx: 16:00 None; hb - PSHx: 16:00 weight loss surgery; hb - Immunization history:: Adult Immunizations up to date. - Social history:: Smoking status: Patient/guardian denies using tobacco. - Ebola Screening: : No symptoms or risks identified at this time. Screenin:12 Abuse screen: Denies threats or abuse. Nutritional screening: No deficits noted. tw2 Tuberculosis screening: No symptoms or risk factors identified. Fall Risk None identified. Assessment: 16:44 General: Appears uncomfortable, well groomed, Behavior is calm, cooperative, tw2 appropriate for age. Pain: Complains of pain in lumbar area, left low back and right low back. Neuro: Level of Consciousness is awake, alert, obeys commands, Oriented to person, place, time, situation. Cardiovascular: Patient's skin is warm and dry. Respiratory: Airway is patent Respiratory effort is even, unlabored, Respiratory pattern is regular, symmetrical. GI: No signs and/or symptoms were reported involving the gastrointestinal system. : No signs and/or symptoms were reported regarding the genitourinary system. EENT: No signs and/or symptoms were reported regarding the EENT system. Derm: No signs and/or symptoms reported regarding the dermatologic system. Musculoskeletal: Reports pain in lumbar area, left low back and right low back. 17:29 Reassessment: Patient appears in no apparent distress at this time. Patient and/or tw2 family updated on plan of care and expected duration. Pain level reassessed. Patient is alert, oriented x 3, equal unlabored respirations, skin warm/dry/pink. pt was sitting on side of bed leaning forward upon arrival to room, pt is now sitting upright in bed at this time, feeling better Patient states feeling better. Patient states symptoms have improved. 18:47 Reassessment: Patient appears in no apparent distress at this time. No changes from ss previously documented assessment. Patient and/or family updated on plan of care and expected duration. Pain level reassessed. Patient is alert, oriented x 3, equal unlabored respirations, skin warm/dry/pink. Patient states feeling better. Patient states symptoms have improved. Vital Signs: 16:00 BP 133 / 69; Pulse 99; Resp 16; Temp 98.6; Pulse Ox 100% on R/A; Weight 77.11 kg; hb Height 5 ft. 7 in. (170.18 cm); Pain 8/10; 17:30 BP 103 / 45; Pulse 66; Resp 17; Pulse Ox 99% on R/A; Pain 7/10; tw2 16:00 Body Mass Index 26.63 (77.11 kg, 170.18 cm) hb ED Course: 15:56 Patient arrived in ED. rg4 15:56 Davon Pastor MD is Private Physician. rg4 16:00 Triage completed. hb 16:00 Arm band placed on right wrist. hb 16:05 Bed in low position. Call light in reach. Adult w/ patient. Pulse ox on. NIBP on. tw2 16:07 Liz Valdes FNP-C is PHCP. kb 16:07 Wilfrid Coyle MD is Attending Physician. kb 16:12 Le Morel RN is Primary Nurse. tw2 16:32 Inserted saline lock: 22 gauge in right antecubital area, using aseptic technique. tw2 Blood collected. 16:43 Test, Serum Sent. tw2 17:48 CT completed. Patient tolerated procedure well. Patient moved to CT. Patient moved back nj from CT. 17:50 CT Lumbar Spine Wo Con In Process Unspecified. EDMS 18:46 No provider procedures requiring assistance completed. IV discontinued, intact, ss bleeding controlled, No redness/swelling at site. Pressure dressing applied. Administered Medications: 16:30 Drug: Valium 5 mg Route: PO; tw2 17:29 Follow up: Response: No adverse reaction; Pain is decreased tw2 16:32 Drug: TORadol 30 mg Route: IVP; Site: right antecubital; tw2 17:29 Follow up: Response: No adverse reaction; Pain is decreased tw2 16:40 Drug: Decadron - Dexamethasone 10 mg Route: IVP; Site: right antecubital; tw2 17:29 Follow up: Response: No adverse reaction tw2 Outcome: 18:12 Discharge ordered by MD. kb 18:46 Discharged to home ambulatory, with family, with significant other. ss 18:46 Condition: stable 18:46 Discharge instructions given to patient, family, significant other, Instructed on discharge instructions, follow up and referral plans. no drinking with medication, no driving heavy equipment, medication usage, Demonstrated understanding of instructions, follow-up care, medications, Prescriptions given X 2. 18:47 Patient left the ED. ss Signatures: Dispatcher [employer] EDAR Liz Valdes, ORDER ANALYST-C ORDER ANALYST-Shireen Bourgeois RN RN Magui Pastor RN RN hb Wise, Tara, RN RN 2 Lillian Solis 4 Tod Anne Corrections: (The following items were deleted from the chart) 16:28 15:59 Acuity: RASHAWN 4 hb hb 16:44 16:35 Inserted saline lock: 22 gauge in right antecubital area, using aseptic tw2 technique. Blood collected. tw2
[2018-07-08 01:11] VITALS: TEMP 98.6
[2018-07-08 01:12] VITALS: BP 103/45; O2SAT 99
== END 2018-07-07 18:47 | disposition home or self-care (01) ==
LOC: ER 15:53
DX: M54.5 Low back pain (principal)
CPT/HCPCS: 36415; 72131; 84703; 96374; 96375; 99284; J1100

== ENCOUNTER 2022-10-07 14:01 | Emergency (ER) | payer BC ==
--- OUTSIDE RECORDS SUMMARY | 2022-10-07 14:06 | XMS REPORT | Continuity of Care Document ---
:1995 Author Organization [facility] t Address [address] [place] [address] Care Team Providers Name Role Phone Carolyn Rome Attending Clinician VISIT, LINE CLOSER MPB Attending Clinician Unavailable CAROYLN ROME Attending Clinician Unavailable CAROLYN ROME Attending Clinician Unavailable Dari Rosales Attending Clinician CAROLYN ROME Admitting Clinician Unavailable Carolyn Rome Admitting Clinician Dari Rosales Admitting Clinician Payers Payer Name Policy Type Policy Number Effective Date Expiration Date S ource [place] [id number] 2019 00:00:00 OUT OF STATE Problems Condition Condition Condition Status Onset Resolution Last Treating Co mments Source Name Details Category Date Date Treatment Clinician Date PAIN PAIN Diagnosis Active 2022-06-21 Mem oria Active 06-20 08:17:00 l 06/20/2022 00:00: Isaiah colon [address] ABDOMINAL ABDOMINAL Diagnosis Active 2019-022019-12-10 Memoria PAIN PAIN 0-29 15:14:00 l Active 00:00: Adalberto 12/09/2019 [facility] [id number], [id number], Diagnosis Active 2019-10-21 Me moria ABDOMINAL ABDOMINAL 06-15 17:16:00 l PAIN PAIN 00:00: Adalberto Active 00 06/16/2019 [facility] ABDOMINAL ABDOMINAL Diagnosis Active 2019-06-16 Memoria PAIN, PAIN, 06-14 13:26:00 l ACUTE ACUTE 00:00: Adalberto Active 00 06/15/2019 [facility] ABDOMINAL ABDOMINAL Diagnosis Active 2019-06-15 Memoria PAIN, PAIN, 06-14 15:13:00 l NAUSEA/VOM NAUSEA/VOM 00:00: He rmann ITING ITING 00 Active 06/15/2019 [facility] ABDOMINAL ABDOMINAL Diagnosis Active 2017-022017-12-16 Memoria PAIN S/P PAIN S/P 0-31 22:14:00 l JOHNNY SURG. JOHNNY SURG. 00:00: He eris INTRATCABL INTRATCABL 00 Active 12/10/2017 [facility] Other Other Problem 2017-06-02 Memor ia specified specified 16:31:17 l abdominal abdominal Herm pietro hernia hernia with with obstructio obstructio n, without n, without gangrene gangrene 06/02/2017 [facility] Hypokalemi Hypokalem Problem 2017-06-02 Memoria a ia 16:31:17 l 06/02/2017 Isaiah colon [facility] Other Other Problem 2017-06-02 Memor ia postproced postproced 16:31:17 l ural ural Adalberto complicati complicati ons and ons and disorders disorders of of digestive digestive system system 06/02/2017 [facility] Late Late Problem 2018-07-01 Memor ia vomiting vomiting 11:45:35 l of of [place] 07/01/2018 [facility] Bariatric Bariatric Problem 2018-07-01 Memoria surgery surgery 11:45:35 l status status [place] complicati complicati ng ng , , second second trimester trimester 07/01/2018 [facility] Other Other Problem 2018-07-01 Memor ia specified specified 11:45:35 l metabolic metabolic Herm pietro disorders disorders 07/01/2018 [facility] Dehydratio Dehydrati Problem 2018-07-01 Pinkyoria n on 11:45:35 l 07/01/2018 Isaiah colon [facility] Anemia Anemia Problem 2018-07-01 Hira albina complicati complicati 11:45:35 l ng ng [place] , , second second trimester trimester 07/01/2018 [facility] Anemia, Anemia, Problem 2018-07-01 Me moria unspecifie unspecifie 11:45:35 l d d Adalberto 07/01/2018 [facility] 27 weeks 27 weeks Problem 2018-07-01 Memoria gestation gestation 11:45:35 l of of [place] 07/01/2018 [facility] Diseases Diseases Problem 2018-07-01 Memoria of the of the 11:45:35 l digestive digestive Herm pietro system system complicati complicati ng ng , , second second trimester trimester 07/01/2018 [facility] Other Other Problem 2018-07-01 Memor ia constipati constipati 11:45:35 l on on [place] 07/01/2018 [facility] Malnutriti Problem 2018-07-01 M emoria on in Malnutriti 11:45:35 l , on in Isaiah n second , trimester second trimester 07/01/2018 [facility] Morbid Morbid Problem Active 2022-07-25 Hira albina obesity obesity 10:29:38 l (disorder) (disorder) He rmann Active Problem 07/25/2022 [facility] UNSPECIFIE UNSPECIFI Diagnosis Active 2019-06-16 Memoria D ED 13:26:00 l ABDOMINAL ABDOMINAL Herm pietro PAIN PAIN Active [facility] ILLNESS, ILLNESS, Diagnosis Active 2019-12-10 Memoria UNSPECIFIE UNSPECIFIE 15:14:00 l D D Active [facility] Diagnosis Active Com mon in in Spirit prior prior - [facility] St currently currently [facility] Anemia Anemia Problem Active Common affecting affecting Spir it - [facility] I in second in second St trimester trimester [facility] Supervisio Supervisio Problem Active C ommon n of high n of high Spir it risk risk - [facility] in second in second Luke s trimester trimester [facility] Bariatric Bariatric Problem Active Com mon surgery surgery Spirit status status - [facility] , Me dical second second Center trimester trimester Encounter Encounter Problem Active Com mon for for Spirit supervisio supervisio - [facility] n of n of St low-risk low-risk [facility] in first in first Center trimester trimester Encounter Encounter Problem Active Com mon to to Spirit determine determine - [facility] I St viability viability [place] s of of Medical , , Ce nter single or single or unspecifie unspecifie d fetus d fetus Bariatric Bariatric Problem Active Com mon surgery surgery Spirit status status - [facility] , , Me dical first first Center trimester trimester Supervisio Supervisio Problem Active C ommon n of high n of high Spir it risk risk - [facility] in first in first [facility] trimester trimester [facility] Supervisio Supervisio Diagnosis Active Common n of high n of high Spir it risk risk - [facility] in third in third [facility] trimester trimester [facility] Anemia Anemia Problem Active Common complicati complicati Sp santosh ng ng - [facility] in third in third [facility] trimester trimester [facility] Bariatric Bariatric Diagnosis [facility] status status - [facility] , , Me dical third third Center trimester trimester Hypoglycem Hypoglycem Diagnosis Active Common ia ia Spirit - [facility] Patient Patient Problem Resolve 2019-12-26 2019-12-26 Memoria currently currently d 03-05 01:24:28 01:24:28 l 00:00: Isaiah colon (finding) (finding) 00 Resolved 03/05/2016 Problem 12/26/2019 [facility] History of Past Illness Condition Condition Condition Status Onset Resolution Last Treating Co mments Source Name Details Category Date Date Treatment Clinician Date Endocrine, Endocrine Problem 2017-022018-07-01 2018-07-01 Memoria nutritiona , 02-17 11:45:35 11:45:35 l l and nutritiona 05:11: Isaiah colon metabolic l and 26 diseases metabolic complicati diseases ng complicati , ng second , trimester second trimester 12/18/2017 07/01/2018 [facility] Other Other Problem 2017-06-02 2017-06-02 M emoria complicati complicati 03-05 16:31:17 16:31:17 l ons of ons of 05:15: Adalberto palacios other 31 bariatric bariatric procedure procedure 03/05/2017 8 [facility] Allergies, Adverse Reactions, Alerts Allergy Allergy Status Severity Reaction(s) Onset Inactive Treating Comm ents Source Name Type Date Date Clinician NKFA NKFA Active Pinkyoria l Adalberto No Known No Known Active Memori a Medicati Medicati l on on Adalberto Allerglakesha Hernandez s s Social History Smoking Status Start Date Stop Date Source Tobacco smoking status 2022-06-17 17:59:53 Memor ial Adalberto Medications Ordered Filled Start Stop Current Ordering Indication Dosage Frequency Signature Comments Components Source Medication Medication Date Date Medication? Clinician (SIG) Name Name sucralfate Yes 1 gm = 1 Mem oria 1 g oral 5-08 tab, PO, l tablet 18:27: QID, Crush Yaima nn 00 tablet and mix in 30ml of water or cyrtal light before taking. DO NOT TAKE A WHOLE PILL!, # 56 tab, 0 Refill(s), Pharmacy: [facility] [place], 172.72, cm, 06/17/22 12:54:00 CDT, Height, 88.182, kg, 06/17/22 12:54... omeprazole Yes 40 mg = 1 Me moria 40 mg oral 5-08 cap, PO, l delayed 18:27: Daily, # Isaiah n release 00 90 cap, 0 capsule Refill(s), Pharmacy: [facility] [place], 172.72, cm, 06/17/22 12:54:00 CDT, Height, 88.182, kg, 06/17/22 12:54:00 CDT, Weight Vyvanse Yes QAM, 0 Memoria 5-08 Refill(s) l 18:00: Adalberto 00 FLUoxetine Yes PO, 0 Memori a 5-08 Refill(s) l 18:00: Adalberto 00 Lexapro 2019-02 No Notes: Memoria 0-31 (Same as: l 14:00: Lexapro) [place] 00 Carafate 1 2019-02 Yes 1 gm = 10 Me moria g/10 mL 0-30 mL, PO, l oral 22:47: QID, # 560 Adalberto suspension 00 mL, 0 Refill(s) omeprazole 2019-02 Yes 40 mg = 1 Me moria 40 mg oral 0-30 cap, PO, l delayed 22:47: Daily, # Isaiah n release 00 30 cap, 0 capsule Refill(s) Sucralfate 2019-02 Yes 1 gm = 10 Me moria 100 MG/ML 0-30 mL, PO, l Oral 22:47: QID, # 560 Adalberto Suspension 00 mL, 0 [Carafate] Refill(s) tramadol 2019-02 Yes 50 mg = 1 Hira albina hydrochlori 0-30 tab, PO, l de 50 MG 22:47: Q6H, PRN Yaima nn Oral Tablet 00 Pain, X 10 day, # 10 tab, 0 Refill(s) Enoxaparin 2019-02 No Notes: Memor ia 0-30 (Same as: l 19:00: Lovenox) Acetaminoph 2019-02 No Notes: Do M emoria en 300 MG / 0-30 not exceed l Codeine 18:37: 4gm/day of Herm pietro Phosphate 00 acetaminop 30 MG Oral hen. (Same Tablet as: [Tylenol Tylenol with with Codeine #3] Codeine # 3) Calcium 2019-02 No 1,000 mL, Memor ia Chloride 0-30 1,000 l 0.0014 15:30: ml/hr, MEQ/ML / 00 Infuse Potassium Over: 1 Chloride hr, Route: 0.004 IV, 1,000, MEQ/ML / Drug form: Sodium INJ, ONCE, Chloride Priority: 0.103 STAT, MEQ/ML / Dosing Sodium Weight 85 Lactate kg, Start 0.028 date: MEQ/ML 12/10/19 Injectable 10:30:00 Solution CDT, Stop date: 12/10/19 10:30:00 CDT, 0 Ofirmev 2019-02 No Notes: Memoria 0-30 Infuse l 14:33: over 15 minutes Do not exceed 4gm/day of acetaminop hen MEDICATION WASTE Product Size: 1000 mg Product Wasted: ___ mg Protonix 2019-02 No Notes: For Mem oria 0-30 IV push l 14:00: reconstitu te with 10 ml 0.9% sodium chloride and push over 2 minutes. (Same as: Protonix) Thiamine 2019-02 No Notes: Memoria 0-30 (Same As: l 14:00: Vitamin B1) Sucralfate 2019-02 No Notes: June M emoria 100 MG/ML 0-30 interfere l Oral 02:00: w/enteral Adalberto Suspension 00 feeds - [Carafate] Take 1 hr before or 2 hr after antacids, dairy pdt, meals & minerals - On empty stomach. For patients unable to swallow tablet, dissolve in 10mL - 30mL of water or juice and stir before giving. (Same As: Carafate) Dilaudid 2019-02 No Notes: Memoria 0-29 Same as l 23:41: Dilaudid Phenergan 2019-02 No 12.5 mg, Hira albina 0-29 50 mL, l 23:41: Route: IVPB, Drug form: SOLN, Q4H, Dosing Weight 85, kg, PRN Nausea & Vomiting, Start date: 12/09/19 18:41:00 CDT, Duration: 30 day, Stop date: 01/08/20 18:40:00 VERTICA ARCHITECT, 0 Zofran 2019-02 No Notes: Memoria 0-29 (Same as: l 23:41: Zofran) MEDICATION WASTE Product Size: 4 mg Product Wasted: ___ mg Lactated 2019-02 No 1,000 mL, Hira albina Ringers IV 0 Rate: 125 l 1,000 mL 23:36: ml/hr, Infuse over: 8 hr, Route: IV, Dosing Weight 85 kg, Total Volume: 1,000, Start date: 12/09/19 18:36:00 CDT, Duration: 30 day, Stop date: 01/08/20 18:35:00 VERTICA ARCHITECT, 2.04, m2, 0 Potassium No Notes: Memori a Chloride 5-06 Infuse at l 14:00: a rate of 10 mEq/hr. (Same as: KCL) Lexapro No Notes: Memoria 5-06 (Same as: l 14:00: Lexapro) Calcium 2019- No 1,000 mL, Memor ia Chloride 5-06 1,000 l 0.0014 13:52: ml/hr, MEQ/ML / 00 Infuse Potassium Over: 1 Chloride hr, Route: 0.004 IV, 1,000, MEQ/ML / Drug form: Sodium INJ, ONCE, Chloride Priority: 0.103 STAT, MEQ/ML / Dosing Sodium Weight Lactate 77.273 kg, 0.028 Start MEQ/ML date: Injectable 06/16/19 Solution 8:52:00 CDT, Stop date: 06/16/19 8:52:00 CDT, 0 Protonix 2020-0 No Notes: For Mem oria 5-06 IV push l 12:30: reconstitu [place] 00 te with 10 ml 0.9% sodium chloride and push over 2 minutes. (Same as: Protonix) Lexapro 5 2020-0 Yes 10 mg = 2 Mem oria mg oral 5-05 tab, PO, l tablet 21:12: Daily, 0 [place] 00 Refill(s) Escitalopra 2020-0 Yes 5 mg = 1 Me moria m 5 MG Oral 5-05 tab, PO, l Tablet 21:12: Daily, 0 [Lexapro] 00 Refill(s) Sodium 2019-0 No 984.8 mL, Memori a Chloride 5- Rate: 500 l 0.9% IV 20:23: ml/hr, [place] 984.8 mL + 00 Infuse M.V.I.-12 over: 2 10 mL + hr, Route: folic acid IV, Dosing IV 1 mg + Weight thiamine IV 80.455 kg, 500 mg Total Volume: 1,000, Start date: 06/15/19 15:23:00 CDT, Duration: 1 doses or times, Stop date: 06/15/19 17:22:00 CDT, 1.98, m2, 0 Lactated 2019-0 No 1,000 mL, Hira albina Ringers IV 5-05 Rate: 150 l 1,000 mL 20:23: ml/hr, Adalberto 00 Infuse over: 6.7 hr, Route: IV, Dosing Weight 80.455 kg, Total Volume: 1,000, Start date: 06/15/19 15:23:00 CDT, Duration: 30 day, Stop date: 07/15/19 15:22:00 CDT, 1.98, m2, 0 Dilaudid 2020-0 No Notes: Memoria 5-05 Same as l 20:23: Dilaudid [place] 00 Zofran 2020-0 No Notes: Memoria 5-05 (Same as: l 20:23: Zofran) [place] 00 MEDICATION WASTE Product Size: 4 mg Product Wasted: ___ mg Phenergan No 12.5 mg, Hira albina 5-05 50 mL, l 20:23: Route: IV [place] 00 Central, Drug form: SOLN, Q6H, Dosing Weight 80.455, kg, PRN Nausea & Vomiting, Start date: 06/15/19 15:23:00 CDT, Duration: 30 day, Stop date: 07/15/19 15:22:00 CDT, 0 Ofirmev No Notes: Max Hira albina 5-05 acetaminop l 20:23: hen 4000 [place] 00 mg/day (4 gm/day). (Same as: Tylenol Extra Strength) Calcium No 1,000 mL, Memor ia Chloride 5-05 1,000 l 0.0014 20:17: ml/hr, [place] MEQ/ML / 00 Infuse Potassium Over: 1 Chloride hr, Route: 0.004 IV, 1,000, MEQ/ML / Drug form: Sodium INJ, ONCE, Chloride Priority: 0.103 STAT, MEQ/ML / Dosing Sodium Weight Lactate 80.455 kg, 0.028 Start MEQ/ML date: Injectable 06/15/19 Solution 15:17:00 CDT, Stop date: 06/15/19 15:17:00 CDT, 0 omeprazole 2017-02 Yes 40 mg = 1 Me moria 40 mg oral 1-02 cap, PO, l delayed 16:08: Daily, # Isaiah n release 00 30 cap, 0 capsule Refill(s), Pharmacy: [id number] Sucralfate 2017-02 Yes 1 gm = 10 Me moria 100 MG/ML 1-02 ml, PO, l Oral 16:08: QID-Before [place] Suspension 00 Meals, # [Carafate] 560 mL, 0 Refill(s), Pharmacy: [id number] Protonix 2017-02 No Notes: Memoria 1-02 Tablet l 14:00: should not [place] 00 be chewed or crushed. (Same as: Protonix) Carafate 2017-02 No Notes: May Mem oria 1-02 interfere l 14:00: w/enteral [place] 00 feeds - Take 1 hr before or 2 hr after antacids, dairy pdt, meals & minerals - On empty stomach. For patients unable to swallow tablet, dissolve in 10mL - 30mL of water or juice and stir before giving. (Same As: Carafate) Ferralet 2017-02 No Notes: Hira albina 02-10 Same as: l 22:53: Hematogen [place] Non-Formul sia Ferralet 2017-02 No 1 tab, PO, Memoria 02-10 Daily, 0 l 21:28: Refill(s) Adalberto 00 multivitami 2017-02 No 1 tab, Hira albina n, 02-10 Route: PO, l 14:00: Drug Form: Adalberto 00 TAB, Dosing Weight 74.744, kg, Daily, Start date: 12/11/17 9:00:00 CDT, Duration: 30 day, Stop date: 01/09/18 9:00:00 VERTICA ARCHITECT Sodium 2017-02 No 1,000 mL, Memori a Chloride 02-10 Rate: 150 l 0.9% IV 12:38: ml/hr, Adalberto 1,000 mL + 00 Infuse M.V.I.-12 over: 6.7 10 mL Daily hr, Route: + folic IV, Dosing acid IV 1 Weight mg Daily + 74.744 kg, thiamine IV Total 1 Volume: 1,011.2, Start date: 12/11/17 7:38:00 CDT, Duration: 3 day, Stop date: 12/14/17 7:37:00 VERTICA ARCHITECT, 1.91, m2 Acetaminoph 2017-02 No Notes: Max Memoria en 02-10 acetaminop l 12:19: hen 4000 [place] 00 mg/day (4 gm/day). (Same as: Tylenol Extra Strength) CitraNatal CitraNatal Yes Aly as Common DHA 90 DHA 10-01 Rekhi directed Spirit 00:00: - [facility] Ferralet 90 Ferralet 90 Yes Aly 1 tablet Common 10-01 Rekhi Spirit 00:00: - [facility] Tylenol No Notes: Do Memor ia -15 not exceed l 18:00: 4 gm/day. [place] 00 (Same as: Tylenol) Lactated No 1,000 mL, Hira albina Ringers 1-15 Rate: 80 l Injection 16:00: ml/hr, Isaiah n IV 1,000 mL 00 Infuse over: 12.5 hr, Route: IV, Dosing Weight 74.744 kg, Total Volume: 1,000, Start date: 02/24/17 10:00:00 VERTICA ARCHITECT, Duration: 30 day, Stop date: 03/26/17 9:59:00 VERTICA ARCHITECT, 1.91, m2 tramadol No 50 mg = 1 Hira albina hydrochlori 1-15 tab, PO, l de 50 MG 14:27: Q6H, PRN Yaima nn Oral Tablet 00 Other -See Comment | Pain Score 3-6, X 3 day, # 12 tab, 0 Refill(s) Enoxaparin No Notes: Memor ia 1-15 (Same as: l 05:00: Lovenox) Adalberto 00 Famotidine No Notes: Memor ia 1-15 (Same as: l 03:00: Pepcid) Adalberto Can be dilute in 5-10cc NS IVP: Slow IV push over at least 2 minutes. Ketorolac No 4 days Memor ia 1-15 l 00:00: MEDICATION Adalberto 00 WASTE Product Size: 30 mg Product Wasted: 15___ mg Beneprotein No Notes: Hira albina 7 gm pkt 1-14 (Same as: l 19:00: Beneprotei [place] 00 n) Ofirmev No Notes: Memoria 1-14 Infuse l 18:00: over 15 Adalberto 00 minutes Do not exceed 4gm/day of acetaminop hen MEDICATION WASTE Product Size: 1000 mg Product Wasted: ___ mg Calcium 2018 No 1,000 mL, Memor ia Chloride 1-14 Rate: 125 l 0.0014 16:49: ml/hr, [place] MEQ/ML / 00 Infuse Potassium over: 8 Chloride hr, Route: 0.004 IV, Dosing MEQ/ML / Weight Sodium 74.744 kg, Chloride Total 0.103 Volume: MEQ/ML / 1,000, Sodium Start Lactate date: 0.028 02/23/17 MEQ/ML 10:49:00 Injectable VERTICA ARCHITECT, Stop Solution date: 02/24/17 10:00:00 VERTICA ARCHITECT, 1.91, m2 Metoprolol No Notes: Memor ia 14 (Same as: l 16:49: Lopressor) Push over 2 minutes Sodium No 984.8 mL, Memori a Chloride 02-23 Rate: 100 l 0.9% IV 16:49: ml/hr, [place] 984.8 mL + 00 Infuse M.V.I.-12 over: 10 10 mL Daily hr, Route: + folic IV, Dosing acid IV 1 Weight mg Daily + 74.744 kg, thiamine IV Total 5 Volume: 1,000, Start date: 02/23/17 10:49:00 VERTICA ARCHITECT, Duration: 1 doses or times, Stop date: 02/23/17 20:48:00 VERTICA ARCHITECT, 1.91, m2 tramadol No Notes: Not Mem oria hydrochlori 02-23 to exceed l de 50 MG 16:49: 400mg/day. Her silva Oral Tablet 00 (Same As: Ultram) glycopyrrol No Route: IV, Memoria ate (ANES) 02-23 Drug form: l 16:45: INJ, ONCE, Stop date: 02/23/17 10:45:00 VERTICA ARCHITECT neostigmine No Route: IV, Memoria (ANES) 02-23 Drug form: l 16:45: INJ, ONCE, Stop date: 02/23/17 10:45:00 VERTICA ARCHITECT ketOROLAC No IV, ONCE Hira albina (ANES) 02-23 l 16:45: morphine No Route: IV, Mem oria Sulfate 02-23 Drug form: l (ANES) 16:44: INJ, ONCE, Stop date: 02/23/17 10:44:00 VERTICA ARCHITECT rocuronium No Route: IV, M emoria (ANES) 02-23 Drug form: l 15:38: INJ, ONCE, Stop date: 02/23/17 9:38:00 VERTICA ARCHITECT ondansetron 2018-0 No Route: IV, Memoria (ANES) -14 Drug form: l 15:33: INJ, ONCE, Stop date: 02/23/17 9:33:00 VERTICA ARCHITECT dexamethaso 2017-0 No Route: IV, Memoria ne (ANES) 02-23 Drug form: l 15:33: INJ, ONCE, Stop date: 02/23/17 9:33:00 VERTICA ARCHITECT famotidine 2017-0 No Route: IV, M emoria (ANES) 02-23 Drug form: l 15:33: INJ, ONCE, Stop date: 02/23/17 9:33:00 VERTICA ARCHITECT succinylcho 2017-0 No Route: IV, Memoria line (ANES) 02-23 Drug form: l 15:23: INJ, ONCE, Stop date: 02/23/17 9:23:00 VERTICA ARCHITECT propofol 2017-0 No Route: IV, Mem oria (ANES) 02-23 Drug form: l 15:23: INJ, ONCE, Stop date: 02/23/17 9:23:00 VERTICA ARCHITECT midazolam 2018-0 No Route: IV, Me moria (ANES) 02-23 Drug form: l 15:23: SOLN, ONCE, Stop date: 02/23/17 9:23:00 VERTICA ARCHITECT fentaNYL 2017-0 No Route: IV, Mem oria (ANES) 02-23 Drug form: l 15:23: INJ, ONCE, Stop date: 02/23/17 9:23:00 VERTICA ARCHITECT lidocaine 2017-0 No Route: IV, Me moria (ANES) 14 Drug form: l 15:23: INJ, ONCE, Stop date: 02/23/17 9:23:00 VERTICA ARCHITECT ceFAZolin 2017-0 No Route: IV, Me moria (ANES) 2000 02-23 Drug form: l mg 14:48: INJ, Start date: 02/23/17 8:48:00 VERTICA ARCHITECT, Stop date: 02/23/17 9:48:00 VERTICA ARCHITECT Ancef 2017-0 No 2 gm, Memoria 02-23 Route: l 14:48: IVPB, ONCE, Dosing Weight 74.744, kg, Start date: 02/23/17 8:48:00 VERTICA ARCHITECT, Stop date: 02/23/17 8:48:00 VERTICA ARCHITECT, Surgical Prophylaxi s Only; For patients < 120 kg, ABX Indication : Surgical Prophylaxi s Lactated No Route: IV, Mem oria Ringers 1-14 Total l Injection 14:32: Volume: Yaima nn IV (ANES) 00 1,000, 1000 mL Start date: 02/23/17 8:32:00 VERTICA ARCHITECT, Stop date: 02/23/17 9:32:00 VERTICA ARCHITECT Dilaudid No Notes: Memoria 1-14 Same as l 13:10: Dilaudid Phenergan No 12.5 mg, Hira albina 1-14 50 mL, l 13:10: Route: Adalberto IVPB, Drug form: SOLN, Q4H, Dosing Weight 74.744, kg, PRN Nausea & Vomiting, Start date: 02/23/17 7:10:00 VERTICA ARCHITECT, Duration: 30 day, Stop date: 03/25/17 7:09:00 VERTICA ARCHITECT Lactated 2018 No 1,000 mL, Hira albina Ringers IV -14 Rate: 125 l 1,000 mL 13:10: ml/hr, Infuse over: 8 hr, Route: IV, Dosing Weight 74.744 kg, Total Volume: 1,000, Start date: 02/23/17 7:10:00 VERTICA ARCHITECT, Duration: 30 day, Stop date: 03/25/17 7:09:00 VERTICA ARCHITECT, 1.91, m2 Saline No Notes: Memoria Flush 0.9% -14 (Same as: l 13:10: BD Posiflush) Ondansetron No Notes: Hira albina 1-14 (Same as: l 13:10: Zofran) MEDICATION WASTE Product Size: 4 mg Product Wasted: ___ mg Immunizations Ordered Immunization Filled Immunization Date Status Commen ts Source Name Name TDAP > 7 TDAP > 7 2018-02-11 Completed [facility] Years-Adacel Years-Adacel 00:00:00 - [facility] Vital Signs Vital Name Observation Time Observation Value Comments Source Height 2022-07-22 19:26:00 172.7 cm [facility] Adalberto Weight 2022-07-22 19:26:00 [facility] [place] BMI Calculated 2022-07-22 19:26:00 Memori al Adalberto Systolic (mm Hg) 2022-06-21 17:43:00 Hira rial [place] Diastolic (mm Hg) 2022-06-21 17:43:00 Mem orial Adalberto Height 2022-06-21 15:26:00 5 [ft_i] [facility] [place] Weight 2022-06-21 15:26:00 [facility] Adalberto BMI Calculated 2022-06-21 15:26:00 Memori al Adalberto Height 2019-12-23 16:00:00 172.72 cm [facility] [place] Weight 2019-12-23 16:00:00 [facility] Adalberto BMI Calculated 2019-12-23 16:00:00 Memori al [place] Heart Rate 2019-12-10 19:55:00 [facility] [place] Respitory Rate 2019-12-10 19:55:00 Memori al [place] Systolic (mm Hg) 2019-12-10 19:55:00 Hira rial Adalberto Diastolic (mm Hg) 2019-12-10 19:55:00 Mem orial Adalberto Temperature Oral (F) 2019-12-10 19:25:00 98.3 F [facility] Adalberto Heart Rate 2019-12-10 19:25:00 [facility] [place] Respitory Rate 2019-12-10 19:25:00 Memori al [place] Systolic (mm Hg) 2019-12-10 19:25:00 Hira rial Adalberto Diastolic (mm Hg) 2019-12-10 19:25:00 Mem orial Adalberto Temperature Oral (F) 2019-12-10 12:15:00 98.0 F [facility] [place] Heart Rate 2019-12-10 12:15:00 [facility] Adalberto Respitory Rate 2019-12-10 12:15:00 Memori al [place] Systolic (mm Hg) 2019-12-10 12:15:00 Hira rial [place] Diastolic (mm Hg) 2019-12-10 12:15:00 Mem orial [place] Temperature Oral (F) 2019-12-10 08:25:00 97.7 F [facility] Adalberto Height 2019-12-09 22:25:00 172.72 cm [facility] [place] Weight 2019-12-09 22:25:00 [facility] Adalberto BMI Calculated 2019-12-09 22:25:00 Memori al Adalberto Temperature Oral (F) 2019-06-16 20:59:00 98.1 F [facility] [place] Heart Rate 2019-06-16 20:59:00 [facility] [place] Respitory Rate 2019-06-16 20:59:00 Memori al Adalberto Systolic (mm Hg) 2019-06-16 20:59:00 Hira rial Adalberto Diastolic (mm Hg) 2019-06-16 20:59:00 Mem orial Adalberto Temperature Oral (F) 2019-06-16 16:24:00 97.8 F [facility] [place] Heart Rate 2019-06-16 16:24:00 [facility] [place] Respitory Rate 2019-06-16 16:24:00 Memori al Adalberto Systolic (mm Hg) 2019-06-16 16:24:00 Hira rial Adalberto Diastolic (mm Hg) 2019-06-16 16:24:00 Mem orial [place] Temperature Oral (F) 2019-06-16 12:27:00 97.9 F [facility] [place] Heart Rate 2019-06-16 12:27:00 [facility] Adalberto Respitory Rate 2019-06-16 12:27:00 Memori al Adalberto Systolic (mm Hg) 2019-06-16 12:27:00 Hira rial [facility] Diastolic (mm Hg) 2019-06-16 12:27:00 [facility] [place] Height 2019-06-15 21:03:00 172.72 cm [facility] Weight 2019-06-15 21:03:00 [facility] [place] BMI Calculated 2019-06-15 21:03:00 [facility] al [place] Respitory Rate 2017-12-12 12:50:00 [facility] [place] Temperature Oral (F) 2017-12-12 12:50:00 98.1 F [facility] Systolic (mm Hg) 2017-12-12 12:50:00 Hira rial [place] Diastolic (mm Hg) 2017-12-12 12:50:00 [facility] [place] Temperature Oral (F) 2017-12-12 10:00:00 98.2 F [facility] Systolic (mm Hg) 2017-12-12 10:00:00 Hira rial [place] Diastolic (mm Hg) 2017-12-12 10:00:00 Mem o[facility] [place] Respitory Rate 2017-12-12 10:00:00 [facility] [place] Systolic (mm Hg) 2017-12-12 05:00:00 Hira [facility] [place] Diastolic (mm Hg) 2017-12-12 05:00:00 [facility] [place] Temperature Oral (F) 2017-12-12 05:00:00 97.8 F [facility] Respitory Rate 2017-12-12 05:00:00 [facility] [place] Height 2017-12-11 13:54:00 172.72 cm [facility] Weight 2017-12-11 13:54:00 [facility] [place] BMI Calculated 2017-12-11 13:54:00 [facility] [place] Temperature Oral (F) 2017-02-24 13:32:00 98.2 F [facility] Respitory Rate 2017-02-24 13:32:00 [facility] [place] Heart Rate 2017-02-24 13:32:00 [facility] [place] Systolic (mm Hg) 2017-02-24 13:32:00 Hira rial [place] Diastolic (mm Hg) 2017-02-24 13:32:00 Mem o[facility] [place] Heart Rate 2017-02-24 10:18:00 [facility] [place] Systolic (mm Hg) 2017-02-24 10:18:00 Hira rial [place] Diastolic (mm Hg) 2017-02-24 10:18:00 Mem o[facility] [place] Respitory Rate 2017-02-24 10:18:00 Memori al [place] Temperature Oral (F) 2017-02-24 10:18:00 97.9 F [facility] [place] Systolic (mm Hg) 2017-02-24 06:03:00 Hira rial [place] Diastolic (mm Hg) 2017-02-24 06:03:00 Mem o[facility] [place] Respitory Rate 2017-02-24 06:03:00 Memori al [place] Temperature Oral (F) 2017-02-24 06:03:00 98.5 F [facility] [place] Heart Rate 2017-02-24 06:03:00 [facility] [place] BMI Calculated 2017-02-23 12:38:00 [facility] [place] Weight 2017-02-23 12:38:00 [facility] [place] Height 2017-02-23 12:38:00 172.72 cm [facility] Procedures Procedure Date / Time Performed Performing Clinician Sourc e Duodenal switch 2015-11-30 05:00:00 Wallace Her silva Removal of gallbladder 2015-11-30 05:00:00 Memor ial Adal[facility]to Gastric bypass operation Memoria rafal Glover Tonsillectomy Wallace Glover Encounters Start End Encounter Admission Attending Care Care Encounter Source Date/Time Date/Time Type Type Clinicians Facility Department ID 2022-07-22 2022-07-23 Outpatient MHIE MH [id number] Memoria 21:30:00 04:59:59 Physicians 06 l Bariatric Isaiah n Surgery 2022-07-22 2022-07-22 Outpatient Primomo, MG [facility] [id number] 16:30:00 23:59:59 Carolyn Gan 2022-07-22 2022-07-22 Outpatient MHIE MHIE [id number] Memoria 16:30:00 16:30:00 06 l [place] 2022-07-22 2022-07-22 Ambulatory MHIE MH [id number] Memoria 14:30:00 14:30:00 Pre-Reg Physicians 05 l Bariatric Isaiah n Surgery 2022-07-22 2022-07-22 Outpatient MHIE MHIE [id number] Memoria 09:30:00 09:30:00 05 l [place] 2022-07-22 2022-07-22 Outpatient Primomo, [facility] [id number] 09:30:00 09:30:00 Carolyn Gan 2022-07-02 2022-07-02 Ambulatory MHIE MH [id number] Memoria 16:00:00 16:00:00 Pre-Reg Physicians 03 l Bariatric Isaiah n Surgery 2022-07-02 2022-07-02 Outpatient MHIE MHIE [id number] Memoria 11:00:00 11:00:00 03 l [place] 2022-07-02 2022-07-02 Outpatient VISIT, MG MG [id number] 11:00:00 11:00:00 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 03 MPB 2022-06-21 2022-06-22 Outpatient MHIE MH [id number] Memoria 18:30:00 04:59:59 Physicians 04 l Bariatric Isaiah n Surgery 2022-06-21 2022-06-21 Outpatient Primomo, MG [facility] [id number] 13:30:00 23:59:59 Carolyn Gan 2022-06-21 2022-06-21 Bedded MHIE [facility] [id number] Memoria 13:09:00 18:10:00 Outpatient Adalberto 01 l [facility] 2022-06-21 2022-06-21 Outpatient MHIE MHIE [id number] Memoria 13:30:00 13:30:00 04 rafal Adalberto 2022-06-21 2022-06-21 Outpatient PRIMOMO, [facility] GEMA [id number] Memoria 08:09:00 13:10:00 CAROLYN rafal Adalberto Memoria [facility] 2022-06-21 2022-06-21 Outpatient Primomo, [facility] [id number] 08:09:00 13:10:00 Carolyn Desi Malik 2022-06-21 2022-06-21 Outpatient PRIMOMO, [facility] [id number] [place] 09:15:00 09:15:00 Count includes the [facility] 2022-06-20 2022-06-20 Ambulatory MHIE MH [id number] Memoria 16:30:00 16:30:00 Pre-Reg Physicians 01 l Bariatric Isaiah n Surgery 2022-06-20 2022-06-20 Outpatient MHIE MHIE [id number] Memoria 11:30:00 11:30:00 01 rafal Glover 2022-06-20 2022-06-20 Outpatient Primomo, MG [facility] [id number] 11:30:00 11:30:00 Carolyn Desi Malik 2022-06-17 2022-06-17 Outpatient MHIE MHIE [id number] Memoria 13:00:00 13:00:00 02 rafal Glover 2019-12-23 2019-12-24 Outpatient nullFlavo [id number] Memoria 15:40:00 05:59:59 r Physicians 00 l Bariatric Isaiah n Surgery 2019-12-23 2019-12-23 Outpatient Primomo, [facility] [id number] 09:40:00 23:59:59 Carolyn Gan 2019-12-23 2019-12-23 Outpatient MHIE MHIE [id number] Memoria 09:40:00 09:40:00 00 rafal Glover 2019-12-10 2019-12-10 Observatio nullFlavo [facility] [id number] Memoria 18:08:00 23:45:00 darlene Glover 03 l [facility] 2019-12-10 2019-12-10 Outpatient PRIMOMO, [facility] GEMA [id number] Memoria 13:08:00 18:45:00 CAROLYN Glover [facility] 2019-12-10 2019-12-10 Outpatient Primomo, [facility] [id number] 13:08:00 18:45:00 Carolyn Michele Malik 2019-12-10 2019-12-10 Outpatient Primomo, [facility] [id number] 13:08:00 18:45:00 Carolyn Michele Malik 2019-06-15 2019-06-16 Inpatient nullFlavo [facility] [id number] Memoria 20:23:00 22:35:00 guy Glover 26 l [facility] 2019-06-15 2019-06-16 Outpatient Primomo, [facility] [id number] 15:23:00 17:35:00 Carolyn Stewart Malik 2018-02-17 2018-02-17 [facility] [id number] Common 10:15:00 10:15:00 t [facility] 2018-02-11 2018-02-11 [facility] [id number] Common 11:00:00 11:00:00 [facility]irit [facility] 2018-01-23 2018-01-23 [facility] [id number] Common 09:30:00 09:30:00 [facility] pirit [facility] 2017-12-11 2017-12-12 Inpatient nullFlavo [facility] [id number] Memoria 08:58:00 18:43:00 guy Glover 05 l [facility] 2017-12-11 2017-12-12 Outpatient Arnaldo Maloney, [facility] [id number] 03:58:00 13:43:00 Vera 2017-11-05 2017-11-05 Out[facility] [id number] Common 16:00:00 16:00:00 t [facility] 2017-10-31 2017-10-31 [facility] [id number] Common 10:00:00 10:00:00 [facility] 2017-10-02 2017-10-02 [facility] [id number] Common 13:18:00 13:18:00 [facility] 2017-10-01 2017-10-01 [facility] [id number] Common 15:00:00 15:00:00 [facility] 2017-09-30 2017-09-30 [facility] [id number] Common 14:46:00 14:46:00 t [facility] 2017-02-23 2017-02-24 [facility] [id number] Memoria 12:00:00 18:20:00 guy lyles [facility] 2017-02-23 2017-02-24 Outpatient [facility] [id number] 06:00:00 12:20:00 Carolyn Gan 2017-02-23 2017-02-24 Outpatient [facility] [id number] 06:00:00 12:20:00 Carolyn Gan Results Test Description Test Time Test Comments Results Result Comments Source IMMUNOLOGY 2019-12-10 14:54:00 Test Item Value Reference Range Interpretation Comme nts Coronavirus (COVID-19) SVEAT (test code = Not Detected (12/10/19 9:54 AM) Coronavirus (COVID-19) SVETA) [facility] [id number] 01:48:00 Test Item Value Reference Range Interpretation Comments U Preg (test code = U Negative (12/09/19 8:48 Preg) PM) [facility] [id number] 23:52:00 Test Item Value Reference Range Interpretation Comments Glucose Lvl (test code = Glucose Lvl) 80 70-99 [facility] [id number] 23:52:00 Test Item Value Reference Range Interpretation Comments BUN (test code = BUN) 8 7-22 [facility] [id number] 23:52:00 Test Item Value Reference Range Interpretation Comments Creatinine Lvl (test code = Creatinine 0.52 0.50-1.40 Lvl) [place] 162450-10-29 23:52:00 Test Item Value Reference Range Interpretation Comments Sodium Lvl (test code = Sodium Lvl) 142 135-145 [place] 162450-10-29 23:52:00 Test Item Value Reference Range Interpretation Comments Potassium Lvl (test code = Potassium 4.1 3.5-5.1 Lvl) [place] 162450-10-29 23:52:00 Test Item Value Reference Range Interpretation Comments Chloride Lvl (test code = Chloride Lvl) 113 95-109 [place] 162450-10-29 23:52:00 Test Item Value Reference Range Interpretation Comments CO2 (test code = CO2) 22 24-32 [place] 162450-10-29 23:52:00 Test Item Value Reference Range Interpretation Comments Calcium Lvl (test code = Calcium Lvl) 8.1 8.5-10.5 [place] 162450-10-29 23:52:00 Test Item Value Reference Range Interpretation Comments AGAP (test code = AGAP) 11.1 10.0-20.0 [place] 162450-10-29 23:52:00 Test Item Value Reference Range Interpretation Comments eGFR (test code = eGFR) 133 [place] 224150-10-29 23:52:00 Test Item Value Reference Range Interpretation Comments WBC (test code = WBC) 4.9 3.7-10.4 [place] 224150-10-29 23:52:00 Test Item Value Reference Range Interpretation Comments RBC (test code = RBC) 3.95 4.20-5.40 [place] 224150-10-29 23:52:00 Test Item Value Reference Range Interpretation Comments Hgb (test code = Hgb) 10.0 12.0-16.0 [place] 42444-10-29 23:52:00 Test Item Value Reference Range Interpretation Comments Hct (test code = Hct) 30.5 36.0-48.0 [place] 224150-10-29 23:52:00 Test Item Value Reference Range Interpretation Comments MCV (test code = MCV) 77.3 80.0-98.0 [place] 224150-10-29 23:52:00 Test Item Value Reference Range Interpretation Comments MCH (test code = MCH) 25.3 pg 27.0-31.0 [facility]HotbmucPAKYAGCKEO9051-78-19 23:52:00 Test Item Value Reference Range Interpretation Comments MCHC (test code = MCHC) 32.7 32.0-36.0 [facility] CenterRqlltksPHVDGWROZO1139-05-35 23:52:00 Test Item Value Reference Range Interpretation Comments RDW (test code = RDW) 15.4 11.5-14.5 [place] 224150-10-29 23:52:00 Test Item Value Reference Range Interpretation Comments Platelet (test code = Platelet) 170 133-450 [facility] CenterThtirkrQKNBBVXSOV1226-34-53 23:52:00 Test Item Value Reference Range Interpretation Comments MPV (test code = MPV) 9.6 7.4-10.4 [facility]2020-05-06 11:12:00 Test Item Value Reference Range Interpretation Comments Glucose Lvl (test code = Glucose Lvl) 68 70-99 [facility]2020-05-06 11:12:00 Test Item Value Reference Range Interpretation Comments BUN (test code = BUN) 10 7-22 [facility]2020-05-06 11:12:00 Test Item Value Reference Range Interpretation Comments Creatinine Lvl (test code = Creatinine 0.52 0.50-1.40 Lvl) [facility]2020-05-06 11:12:00 Test Item Value Reference Range Interpretation Comments Sodium Lvl (test code = Sodium Lvl) 141 135-145 [place] 162450-05-06 11:12:00 Test Item Value Reference Range Interpretation Comments Potassium Lvl (test code = Potassium 3.4 3.5-5.1 Lvl) [place] 162450-05-06 11:12:00 Test Item Value Reference Range Interpretation Comments Chloride Lvl (test code = Chloride Lvl) 110 95-109 [place] 162450-05-06 11:12:00 Test Item Value Reference Range Interpretation Comments CO2 (test code = CO2) 24 24-32 [place] 162450-05-06 11:12:00 Test Item Value Reference Range Interpretation Comments Calcium Lvl (test code = Calcium Lvl) 8.2 8.5-10.5 [facility]2020-05-06 11:12:00 Test Item Value Reference Range Interpretation Comments AGAP (test code = AGAP) 10.4 10.0-20.0 [facility]2020-05-06 11:12:00 Test Item Value Reference Range Interpretation Comments eGFR (test code = eGFR) 134 [facility] CenterHdkdxalIJEQUIUYWP3243-43-77 11:12:00 Test Item Value Reference Range Interpretation Comments WBC (test code = WBC) 2.5 3.7-10.4 [facility] CenterOuoxwwxEJQVPPRZUO8577-77-13 11:12:00 Test Item Value Reference Range Interpretation Comments RBC (test code = RBC) 3.64 4.20-5.40 [facility] CenterJaxqaijRWNZDENLVH3627-66-18 11:12:00 Test Item Value Reference Range Interpretation Comments Hgb (test code = Hgb) 10.1 12.0-16.0 [facility] CenterYkoydqwHJPYIVTJFM0175-92-50 11:12:00 Test Item Value Reference Range Interpretation Comments Hct (test code = Hct) 30.1 36.0-48.0 [facility] CenterObscdmtACMOWNRAFN6979-50-71 11:12:00 Test Item Value Reference Range Interpretation Comments MCV (test code = MCV) 82.7 80.0-98.0 [facility] CenterOozjksvOPFRLLROHP7931-77-62 11:12:00 Test Item Value Reference Range Interpretation Comments MCH (test code = MCH) 27.7 pg 27.0-31.0 [facility] CenterIrcmcfrTESLMKUGMJ7725-94-70 11:12:00 Test Item Value Reference Range Interpretation Comments MCHC (test code = MCHC) 33.5 32.0-36.0 [place] 424[address]-05-06 11:12:00 Test Item Value Reference Range Interpretation Comments RDW (test code = RDW) 13.3 11.5-14.5 [facility] CenterQewuqtwHHHDOAJQER5787-55-14 11:12:00 Test Item Value Reference Range Interpretation Comments Platelet (test code = Platelet) 132 133-450 [facility] CenterEgvpixaACTRVQRDSB1310-97-54 11:12:00 Test Item Value Reference Range Interpretation Comments MPV (test code = MPV) 10.0 7.4-10.4 [place] 224150-05-06 11:12:00 Test Item Value Reference Range Interpretation Comments Segs (test code = Segs) 41.8 45.0-75.0 [facility] CenterTsitgiiUTPZDSPCFX0008-93-95 11:12:00 Test Item Value Reference Range Interpretation Comments Lymphocytes (test code = Lymphocytes) 44.3 20.0-40.0 [facility] CenterFywmdalQAQXNLRIEG9698-74-50 11:12:00 Test Item Value Reference Range Interpretation Comments Monocytes (test code = Monocytes) 10.9 2.0-12.0 [facility] CenterCyvwtxnXIXNJRDRGB1598-18-94 11:12:00 Test Item Value Reference Range Interpretation Comments Eosinophils (test code = 2.3 See_Comment [A utomated message] The Eosinophils) system which ge nerated this result tra nsmitted reference range : <=4.0. The reference r brisa was not used to int erpret this result as normal/abnormal . [facility] CenterCjboehmNDNEDADQNB6199-83-35 11:12:00 Test Item Value Reference Range Interpretation Comments Basophils (test code = 0.7 See_Comment [Aut omated message] The Basophils) system which ge nerated this result tra nsmitted reference range : <=1.0. The reference r brisa was not used to int erpret this result as normal/abnormal . [facility] CenterLbqltkaDRSVUOFGBT6444-82-90 11:12:00 Test Item Value Reference Range Interpretation Comments Neutrophils # (test code = Neutrophils 1.1 1.5-8.1 #) [facility] CenterJgjtppgBIQHGPFIEC2117-42-04 11:12:00 Test Item Value Reference Range Interpretation Comments Lymphocytes # (test code = Lymphocytes 1.1 1.0-5.5 #) [facility] CenterVzbuneuVWFXYYRJDU5845-09-95 11:12:00 Test Item Value Reference Range Interpretation Comments Monocytes # (test code 0.3 See_Comment [Aut omated message] The = Monocytes #) system which generated this result tra nsmitted reference range : <=0.8. The reference r brisa was not used to int erpret this result as normal/abnormal . [facility] CenterQpngmhmNFKECTVOUL7621-50-99 11:12:00 Test Item Value Reference Range Interpretation Comments Eosinophils # (test code 0.1 See_Comment [A utomated message] The = Eosinophils #) system whic h generated this result tra nsmitted reference range : <=0.5. The reference r brisa was not used to int erpret this result as normal/abnormal . [facility]2020-05-05 21:21:00 Test Item Value Reference Range Interpretation Comments Glucose Lvl (test code = Glucose Lvl) 86 70-99 [place] 162450-05-05 21:21:00 Test Item Value Reference Range Interpretation Comments BUN (test code = BUN) 11 7-22 [place] 162450-05-05 21:21:00 Test Item Value Reference Range Interpretation Comments Creatinine Lvl (test code = Creatinine 0.64 0.50-1.40 Lvl) [place] 162450-05-05 21:21:00 Test Item Value Reference Range Interpretation Comments Sodium Lvl (test code = Sodium Lvl) 140 135-145 [facility]2020-05-05 21:21:00 Test Item Value Reference Range Interpretation Comments Potassium Lvl (test code = Potassium 3.7 3.5-5.1 Lvl) [place] 162450-05-05 21:21:00 Test Item Value Reference Range Interpretation Comments Chloride Lvl (test code = Chloride Lvl) 109 95-109 [place] 162450-05-05 21:21:00 Test Item Value Reference Range Interpretation Comments CO2 (test code = CO2) 24 24-32 [facility]2020-05-05 21:21:00 Test Item Value Reference Range Interpretation Comments Calcium Lvl (test code = Calcium Lvl) 8.5 8.5-10.5 [facility]2020-05-05 21:21:00 Test Item Value Reference Range Interpretation Comments Albumin Lvl (test code = Albumin Lvl) 4.1 3.5-5.0 [place] 162450-05-05 21:21:00 Test Item Value Reference Range Interpretation Comments AST (test code = AST) 18 See_Comment [Auto mated message] The system which ge nerated this result transmit javier reference range : <=37. The reference range was not used to interpr et this result as enrico l/abnormal. [place] 162450-05-05 21:21:00 Test Item Value Reference Range Interpretation Comments AGAP (test code = AGAP) 10.7 10.0-20.0 [place] 162450-05-05 21:21:00 Test Item Value Reference Range Interpretation Comments B/C Ratio (test code = B/C Ratio) 17 1 6-25 [place] 162450-05-05 21:21:00 Test Item Value Reference Range Interpretation Comments eGFR (test code = eGFR) 124 [facility]2020-05-05 21:21:00 Test Item Value Reference Range Interpretation Comments Total Protein (test code = Total 7.0 6.4-8.4 Protein) [facility]2020-05-05 21:21:00 Test Item Value Reference Range Interpretation Comments ALT (test code = ALT) 31 See_Comment [Auto mated message] The system which ge nerated this result transmit javier reference range : <=65. The reference range was not used to interpr et this result as enrico l/abnormal. [facility]2020-05-05 21:21:00 Test Item Value Reference Range Interpretation Comments Alk Phos (test code = Alk Phos) 91 39-136 [facility]2020-05-05 21:21:00 Test Item Value Reference Range Interpretation Comments Bili Total (test code = Bili Total) 0.6 0.2-1.3 [facility]2020-05-05 21:21:00 Test Item Value Reference Range Interpretation Comments Globulin (test code = Globulin) 2.9 2.7-4.2 [facility]2020-05-05 21:21:00 Test Item Value Reference Range Interpretation Comments A/G Ratio (test code = A/G Ratio) 1.4 1 0.7-1.6 [facility]RGQDLCZSRJJKG9848-52-24 21:21:00 Test Item Value Reference Range Interpretation Comments S Preg (test code = S Negative *NA*(06/15/19 Preg) 4:21 PM) [facility]LiaogzoCONBHZHYEJ8727-81-36 21:21:00 Test Item Value Reference Range Interpretation Comments Segs (test code = Segs) 78.2 45.0-75.0 [facility] CenterXsldaeqULWAKFWGYX5301-26-85 21:21:00 Test Item Value Reference Range Interpretation Comments Lymphocytes (test code = Lymphocytes) 15.7 20.0-40.0 [place] 224150-05-05 21:21:00 Test Item Value Reference Range Interpretation Comments Monocytes (test code = Monocytes) 5.4 2.0-12.0 [facility] CenterTiwjkjrDDECLOHZPP5861-42-37 21:21:00 Test Item Value Reference Range Interpretation Comments Eosinophils (test code = 0.5 See_Comment [A utomated message] The Eosinophils) system which ge nerated this result tra nsmitted reference range : <=4.0. The reference r brisa was not used to int erpret this result as normal/abnormal . [facility] CenterOiygqikSJZXKNCTSY1658-30-36 21:21:00 Test Item Value Reference Range Interpretation Comments Basophils (test code = 0.2 See_Comment [Aut omated message] The Basophils) system which ge nerated this result tra nsmitted reference range : <=1.0. The reference r brisa was not used to int erpret this result as normal/abnormal . [facility] CenterZoshsjeCMLGOVBALR3208-12-59 21:21:00 Test Item Value Reference Range Interpretation Comments Neutrophils # (test code = Neutrophils 4.0 1.5-8.1 #) [facility] CenterFocwguuLBJEAXIHRB4350-86-61 21:21:00 Test Item Value Reference Range Interpretation Comments Lymphocytes # (test code = Lymphocytes 0.8 1.0-5.5 #) [facility] CenterKopvfbnJCDNLYWKXJ8433-66-15 21:21:00 Test Item Value Reference Range Interpretation Comments Monocytes # (test code 0.3 See_Comment [Aut omated message] The = Monocytes #) system which generated this result tra nsmitted reference range : <=0.8. The reference r brisa was not used to int erpret this result as normal/abnormal . [facility] CenterXbuecisEUQPIBJJMY0991-99-31 21:21:00 Test Item Value Reference Range Interpretation Comments WBC (test code = WBC) 5.1 3.7-10.4 [facility] CenterOnaaonhGZZNSBSPLQ8599-74-45 21:21:00 Test Item Value Reference Range Interpretation Comments RBC (test code = RBC) 4.03 4.20-5.40 [facility] CenterXckhyzmMJNQPHONZE2221-31-25 21:21:00 Test Item Value Reference Range Interpretation Comments Hgb (test code = Hgb) 11.1 12.0-16.0 [facility] CenterLxfcjsoHXVEFRDRNE4602-85-79:21:00 Test Item Value Reference Range Interpretation Comments Hct (test code = Hct) 33.9 36.0-48.0 [facility] CenterNetyfitJYOCLADSEC5607-86-34 21:21:00 Test Item Value Reference Range Interpretation Comments MCV (test code = MCV) 84.0 80.0-98.0 [facility] CenterXoswjljQRADWHRLDO7128-07-38 21:21:00 Test Item Value Reference Range Interpretation Comments MCH (test code = MCH) 27.5 pg 27.0-31.0 [facility] CenterZxvtcuoSKGMPZTVPP2157-14-31 21:21:00 Test Item Value Reference Range Interpretation Comments MCHC (test code = MCHC) 32.7 32.0-36.0 [facility] CenterGxszoalIACIFCDKQY3802-54-43 21:21:00 Test Item Value Reference Range Interpretation Comments RDW (test code = RDW) 13.5 11.5-14.5 [facility] CenterShrywrmWRRLMDVALW5737-30-00 21:21:00 Test Item Value Reference Range Interpretation Comments Platelet (test code = Platelet) 181 133-450 [facility] CenterBqmorvxCHYTDRPWOM1180-42-67 21:21:00 Test Item Value Reference Range Interpretation Comments MPV (test code = MPV) 10.2 7.4-10.4 [facility] AND [id number] 16:21:00 Test Item Value Reference Range Interpretation Comments UA Mucus (test code = UA Mucus) Few /LPF [facility] AND [id number] 16:21:00 Test Item Value Reference Range Interpretation Comments UA RBC (test code = 1 See_Comment [Automa javier message] The UA RBC) system which ge nerated this result transmit javier reference range : <=2. The reference range was not used to interpr et this result as enrico l/abnormal. [facility] AND ZEZIL1512-97-28 16:21:00 Test Item Value Reference Range Interpretation Comments UA Bacteria (test code = UA Few /HPF Bacteria) [facility] AND OKWLB2603-15-72 16:21:00 Test Item Value Reference Range Interpretation Comments UA WBC (test code = 3 See_Comment [Automa javier message] The UA WBC) system which ge nerated this result transmit javier reference range : <=5. The reference range was not used to interpr et this result as enrico l/abnormal. [facility] AND [id number] 16:21:00 Test Item Value Reference Range Interpretation Comments UA Leuk Est (test Negative (12/11/17 11:21 code = UA Leuk Est) AM) [facility] AND [id number] 16:21:00 Test Item Value Reference Range Interpretation Comments UA Sq Epi (test code = UA Sq Occasional /LPF Epi) [facility] AND [id number] 16:21:00 Test Item Value Reference Range Interpretation Comments UA Urobilinogen (test code = UA <=1.0 mg/dL 0.1-1.0 Urobilinogen) [facility] AND [id number] 16:21:00 Test Item Value Reference Range Interpretation Comments UA Blood (test code = Negative (12/11/17 11:21 UA Blood) AM) [facility] AND [id number] 16:21:00 Test Item Value Reference Range Interpretation Comments UA Bili (test code = Negative *NA*(12/11/17 UA Bili) 11:21 AM) [facility] AND [id number] 16:21:00 Test Item Value Reference Range Interpretation Comments UA Nitrite (test code Negative (12/11/17 11:21 = UA Nitrite) AM) [facility] AND [id number] 16:21:00 Test Item Value Reference Range Interpretation Comments UA Ketones (test code = UA Ketones) 80 mg/dL [facility] AND [id number] 16:21:00 Test Item Value Reference Range Interpretation Comments UA Glucose (test code Negative *NA*(12/11/17 = UA Glucose) 11:21 AM) [facility] AND [id number] 16:21:00 Test Item Value Reference Range Interpretation Comments UA Protein (test code Negative (12/11/17 11:21 = UA Protein) AM) [facility] AND [id number] 16:21:00 Test Item Value Reference Range Interpretation Comments UA Turbidity (test code Slight *ABN*(12/11/17 = UA Turbidity) 11:21 AM) [facility] AND [id number] 16:21:00 Test Item Value Reference Range Interpretation Comments UA pH (test code = UA pH) 6.0 1 5.0-8.0 [facility] AND [id number] 16:21:00 Test Item Value Reference Range Interpretation Comments UA Spec Grav (test code = UA Spec 1.018 1 Grav) [facility] AND [id number] 16:21:00 Test Item Value Reference Range Interpretation Comments UA Color (test code = Yellow *NA*(12/11/17 UA Color) 11:21 AM) [facility] [id number] 14:11:00 Test Item Value Reference Range Interpretation Comments TIBC (test code = TIBC) 268 228-428 [facility] [id number] 14:11:00 Test Item Value Reference Range Interpretation Comments Iron (test code = Iron) 104 30-160 [facility] [id number] 14:11:00 Test Item Value Reference Range Interpretation Comments % Satur Fe (test code = % Satur Fe) 39 12-57 [facility] [id number] 14:11:00 Test Item Value Reference Range Interpretation Comments UIBC (test code = UIBC) 164 110-370 [facility] [id number] 14:11:00 Test Item Value Reference Range Interpretation Comments Antibody Scrn (test Negative (12/11/17 9:11 code = Antibody Scrn) AM) [facility] [id number] 14:11:00 Test Item Value Reference Range Interpretation Comments Rhig Reqd (test code = See Note 1(12/11/17 9:11 Rhig Reqd) AM) [facility] [id number] 14:11:00 Test Item Value Reference Range Interpretation Comments ABO/Rh (test code = ABO/Rh) A POS [facility] [id number] 14:11:00 Test Item Value Reference Range Interpretation Comments Vitamin D, 25-OH, Total (test code = 14.6 30.0-100.0 Vitamin D, 25-OH, Total) [facility] [id number] 14:11:00 Test Item Value Reference Range Interpretation Comments Amylase Lvl (test code = Amylase Lvl) 45 25-115 [facility] [id number] 14:11:00 Test Item Value Reference Range Interpretation Comments Lipase Lvl (test code = Lipase Lvl) 90 73-393 [facility] [id number] 14:11:00 Test Item Value Reference Range Interpretation Comments Phosphorus (test code = Phosphorus) 3.4 2.5-4.5 [facility] [id number] 14:11:00 Test Item Value Reference Range Interpretation Comments Magnesium Lvl (test code = Magnesium 1.9 1.8-2.4 Lvl) [id number] 14:11:00 Test Item Value Reference Range Interpretation Comments Potassium Lvl (test code = Potassium 4.0 3.5-5.1 Lvl) [facility] Hos[id number] 14:11:00 Test Item Value Reference Range Interpretation Comments Chloride Lvl (test code = Chloride Lvl) 114 95-109 [facility] Hos[id number] 14:11:00 Test Item Value Reference Range Interpretation Comments Calcium Lvl (test code = Calcium Lvl) 8.2 8.5-10.5 [facility] Hosp[id number] 14:11:00 Test Item Value Reference Range Interpretation Comments Sodium Lvl (test code = Sodium Lvl) 145 135-145 [facility] HospitalIpqzvwkYUYXCGCNIGRJ4560-44-44 14:11:00 Test Item Value Reference Range Interpretation Comments Albumin Lvl (test code = Albumin Lvl) 2.7 3.5-5.0 [facility] Hos[id number] 14:11:00 Test Item Value Reference Range Interpretation Comments B/C Ratio (test code = B/C Ratio) 15 1 6-25 [facility] HospitalZdewihwLBZCYNGCPSUS9086-72-04 14:11:00 Test Item Value Reference Range Interpretation Comments ALT (test code = ALT) 28 See_Comment [Auto mated message] The system which ge nerated this result transmit javier reference range : <=65. The reference range was not used to interpr et this result as enrico l/abnormal. [facility] Hospital[id number] 14:11:00 Test Item Value Reference Range Interpretation Comments AGAP (test code = AGAP) 12.0 10.0-20.0 [facility] Hos[id number] 14:11:00 Test Item Value Reference Range Interpretation Comments AST (test code = AST) 16 See_Comment [Auto mated message] The system which ge nerated this result transmit javier reference range : <=37. The reference range was not used to interpr et this result as enrico l/abnormal. [facility] HospitalXawbjepOPSUVPPORDFB1449-17-17 14:11:00 Test Item Value Reference Range Interpretation Comments BUN (test code = BUN) 6 7-22 [facility] Hospital[id number] 14:11:00 Test Item Value Reference Range Interpretation Comments Creatinine Lvl (test code = Creatinine 0.39 0.50-1.40 Lvl) [facility] HospitalEflozpdFYZSKBQIYBNK0400-17-30 14:11:00 Test Item Value Reference Range Interpretation Comments Glucose Lvl (test code = Glucose Lvl) 71 70-99 [facility] Hospital[id number] 14:11:00 Test Item Value Reference Range Interpretation Comments CO2 (test code = CO2) 23 24-32 [facility] HospitalKgxxpgqLMVXOOWRKGFI4790-42-85 14:11:00 Test Item Value Reference Range Interpretation Comments eGFR (test code = eGFR) 148 [facility] HospitalJfdrcllRSQBRAQXFYNG4137-91-05 14:11:00 Test Item Value Reference Range Interpretation Comments A/G Ratio (test code = A/G Ratio) 1.1 1 0.7-1.6 [facility] HospitalQmnmwklBOZPRSVSZWMB3697-48-85 14:11:00 Test Item Value Reference Range Interpretation Comments Alk Phos (test code = Alk Phos) 41 39-136 [facility] HospitalLmcnruhKOQOREQBMINC0315-69-46 14:11:00 Test Item Value Reference Range Interpretation Comments Bili Total (test code = Bili Total) 0.7 0.2-1.3 [facility] HospitalQesoginVDFZJHLNEQOQ0998-68-65 14:11:00 Test Item Value Reference Range Interpretation Comments Globulin (test code = Globulin) 2.4 2.7-4.2 [facility] Hospital[id number] 14:11:00 Test Item Value Reference Range Interpretation Comments Total Protein (test code = Total 5.1 6.4-8.4 Protein) [facility]DgpikewUKDBHLZVLO1158-49-29 14:11:00 Test Item Value Reference Range Interpretation Comments WBC (test code = WBC) 5.3 3.7-10.4 [facility] [id number] 14:11:00 Test Item Value Reference Range Interpretation Comments RBC (test code = RBC) 3.08 4.20-5.40 [facility] CenterRsbciyqWYQENDQFYQ5377-73-57 14:11:00 Test Item Value Reference Range Interpretation Comments RDW (test code = RDW) 13.4 11.5-14.5 [facility] CenterGlsnfbpIKFRKLVXGP2923-25-72 14:11:00 Test Item Value Reference Range Interpretation Comments MCH (test code = MCH) 32.8 pg 27.0-31.0 [facility] CenterLigkcmzZIDCRCTHFL0772-64-12 14:11:00 Test Item Value Reference Range Interpretation Comments MCHC (test code = MCHC) 35.5 32.0-36.0 [facility] CenterClbzdciZNWLCQWSLW5838-72-17 14:11:00 Test Item Value Reference Range Interpretation Comments Platelet (test code = Platelet) 145 133-450 [facility] CenterNsnzgkpNONJQYWDFJ8572-71-50 14:11:00 Test Item Value Reference Range Interpretation Comments MPV (test code = MPV) 9.0 7.4-10.4 [facility] CenterYrlfcppEMUHBQEJNT7513-77-06 14:11:00 Test Item Value Reference Range Interpretation Comments MCV (test code = MCV) 92.5 80.0-98.0 [facility] CenterAxjilhwFLPEAXPHVF2492-64-66 14:11:00 Test Item Value Reference Range Interpretation Comments Hct (test code = Hct) 28.5 36.0-48.0 [facility] CenterHbsccgmZMTTLKOLLG4096-51-06 14:11:00 Test Item Value Reference Range Interpretation Comments Hgb (test code = Hgb) 10.1 12.0-16.0 [facility] CenterLhqkfhfBUVDKFYATK0454-64-08 14:11:00 Test Item Value Reference Range Interpretation Comments Neutrophils # (test code = Neutrophils 3.9 1.5-8.1 #) [facility] CenterBdlhawmPSIIGNJGMF4223-75-25 14:11:00 Test Item Value Reference Range Interpretation Comments Basophils (test code = 0.3 See_Comment [Aut omated message] The Basophils) system which ge nerated this result tra nsmitted reference range : <=1.0. The reference r brisa was not used to int erpret this result as normal/abnormal . [facility] CenterBsmnowtWKNVUZRXIB1927-18-29 14:11:00 Test Item Value Reference Range Interpretation Comments Eosinophils (test code = 0.5 See_Comment [A utomated message] The Eosinophils) system which ge nerated this result tra nsmitted reference range : <=4.0. The reference r brisa was not used to int erpret this result as normal/abnormal . [facility] CenterWwcpnupOHDRRAZHDS8670-28-67 14:11:00 Test Item Value Reference Range Interpretation Comments Monocytes (test code = Monocytes) 5.8 2.0-12.0 [facility] CenterUebxulnZJPVIGULUK3617-33-67 14:11:00 Test Item Value Reference Range Interpretation Comments Monocytes # (test code 0.3 See_Comment [Aut omated message] The = Monocytes #) system which generated this result tra nsmitted reference range : <=0.8. The reference r brisa was not used to int erpret this result as normal/abnormal . [facility] CenterOfebmwtNDHPWHNATU5546-42-98 14:11:00 Test Item Value Reference Range Interpretation Comments Lymphocytes # (test code = Lymphocytes 1.0 1.0-5.5 #) [facility] CenterZywqywgZCBTOOZDVR1442-57-04 14:11:00 Test Item Value Reference Range Interpretation Comments Lymphocytes (test code = Lymphocytes) 18.9 20.0-40.0 [facility] CenterWqswosmETVOJAHHNO9357-47-33 14:11:00 Test Item Value Reference Range Interpretation Comments Segs (test code = Segs) 74.5 45.0-75.0 [facility]IRFCCKYUXU8253-[facility] 14:11:00 Test Item Value Reference Range Interpretation Comments Hep Bs Ag (test code Negative *NA*(12/11/17 = Hep Bs Ag) 9:11 AM) [facility]HamdmriKIFPZNMBST9790-25-35 14:11:00 Test Item Value Reference Range Interpretation Comments HIV. (test code = Negative *NA*(12/11/17 HIV.) 9:11 AM) [facility]YxsarenQNNXBKZPPV2085-66-22 14:11:00 Test Item Value Reference Range Interpretation Comments Treponemal Ab (test code Non-Reactive = Treponemal Ab) *NA*(12/11/17 9:11 AM) [facility] HospitalZrnaezbWEGSZKSRDVDQ9070-54-23 10:50:00 Test Item Value Reference Range Interpretation Comments AGAP (test code = AGAP) 15.3 10.0-20.0 [facility] HospitalSxhazgtIOXUDXFEYSIF3196-56-94 10:50:00 Test Item Value Reference Range Interpretation Comments Potassium Lvl (test code = Potassium 4.3 3.5-5.1 Lvl) [facility] HospitalJosfxduUEUUSFFENSHB8367-16-51 10:50:00 Test Item Value Reference Range Interpretation Comments CO2 (test code = CO2) 22 24-32 [facility] HospitalTwygxdwCNRQXKJCSGMO0005-39-72 10:50:00 Test Item Value Reference Range Interpretation Comments Calcium Lvl (test code = Calcium Lvl) 8.6 8.5-10.5 [facility] HospitalEfmflcrFSUVSGABRTQV0211-01-21 10:50:00 Test Item Value Reference Range Interpretation Comments Chloride Lvl (test code = Chloride Lvl) 109 95-109 [facility] HospitalPxstpkdMNJYXXIVVFLD7369-49-94 10:50:00 Test Item Value Reference Range Interpretation Comments BUN (test code = BUN) 9 7-22 [facility] HospitalSspkvvaSGSWXXEGXAOG0457-06-12 10:50:00 Test Item Value Reference Range Interpretation Comments Sodium Lvl (test code = Sodium Lvl) 142 135-145 [facility] HospitalJfewhvaEMHSPVKTJMIL0221-43-34 10:50:00 Test Item Value Reference Range Interpretation Comments eGFR (test code = eGFR) 131 [facility] HospitalBmikjpdSADUKVWNJQEV3713-83-64 10:50:00 Test Item Value Reference Range Interpretation Comments Creatinine Lvl (test code = Creatinine 0.58 0.50-1.40 Lvl) [facility] HospitalImugeynKRVAAAKODKWZ2473-79-59 10:50:00 Test Item Value Reference Range Interpretation Comments Glucose Lvl (test code = Glucose Lvl) 73 70-99 [facility] CenterDgcqolaZGSQPXGKXT0199-12-40 10:50:00 Test Item Value Reference Range Interpretation Comments WBC (test code = WBC) 4.7 3.7-10.4 [facility] CenterUhohxdvNJQRSRGPQI5316-78-84 10:50:00 Test Item Value Reference Range Interpretation Comments Hct (test code = Hct) 32.1 36.0-48.0 [facility] CenterQluqgpiKTMZMEGAWZ9053-25-59 10:50:00 Test Item Value Reference Range Interpretation Comments MCV (test code = MCV) 87.5 80.0-98.0 [facility] CenterNtaktwyNCELUYEWIL0433-06-89 10:50:00 Test Item Value Reference Range Interpretation Comments Hgb (test code = Hgb) 11.2 12.0-16.0 [facility] CenterXohpgdrNQUIIHJIZY4684-16-44 10:50:00 Test Item Value Reference Range Interpretation Comments RBC (test code = RBC) 3.66 4.20-5.40 [facility] CenterIodaxjfQEHMNVCWGC0851-95-67 10:50:00 Test Item Value Reference Range Interpretation Comments RDW (test code = RDW) 12.1 11.5-14.5 [facility] CenterClvjbogYXVGZPGETF4663-17-62 10:50:00 Test Item Value Reference Range Interpretation Comments MCH (test code = MCH) 30.4 pg 27.0-31.0 [facility] CenterErqzdtvAHENKZOSZB8900-60-03 10:50:00 Test Item Value Reference Range Interpretation Comments MCHC (test code = MCHC) 34.8 32.0-36.0 [facility] CenterSyieijaVJDULCWNPO4296-57-13 10:50:00 Test Item Value Reference Range Interpretation Comments MPV (test code = MPV) 10.4 7.4-10.4 [facility] CenterPvikrnaQEPLPLXMYD5553-70-35 10:50:00 Test Item Value Reference Range Interpretation Comments Platelet (test code = Platelet) 215 133-450 [facility] CenterLsgghrtHTHJZXJLNH7137-77-47 10:50:00 Test Item Value Reference Range Interpretation Comments Basophils (test code = 0.3 See_Comment [Aut omated message] The Basophils) system which ge nerated this result tra nsmitted reference range : <=1.0. The reference r brisa was not used to int erpret this result as normal/abnormal . [facility] CenterPnjbdqgVPMITMTXIZ1137-72-28 10:50:00 Test Item Value Reference Range Interpretation Comments Segs-Bands # (test code = Segs-Bands #) 3.4 1.5-8.1 [facility] CenterUatilfyEYJEFGTOKN4814-95-20 10:50:00 Test Item Value Reference Range Interpretation Comments Lymphocytes # (test code = Lymphocytes 1.0 1.0-5.5 #) [facility] CenterZukfidfNZQAUHCRVK0457-57-09 10:50:00 Test Item Value Reference Range Interpretation Comments Monocytes # (test code 0.3 See_Comment [Aut omated message] The = Monocytes #) system which generated this result tra nsmitted reference range : <=0.8. The reference r brisa was not used to int erpret this result as normal/abnormal . [facility] CenterHdbulqfUBCZZTKXZX5361-58-69 10:50:00 Test Item Value Reference Range Interpretation Comments Segs (test code = Segs) 71.1 45.0-75.0 [facility] CenterXrdytkoIEECWDPVZL0208-38-61 10:50:00 Test Item Value Reference Range Interpretation Comments Eosinophils (test code = 0.1 See_Comment [A utomated message] The Eosinophils) system which ge nerated this result tra nsmitted reference range : <=4.0. The reference r brisa was not used to int erpret this result as normal/abnormal . [facility] CenterYlwndneVPYWEFACVD4515-77-60 10:50:00 Test Item Value Reference Range Interpretation Comments Lymphocytes (test code = Lymphocytes) 21.4 20.0-40.0 [facility] CenterExbdsomTOQROENZZT9441-49-15 10:50:00 Test Item Value Reference Range Interpretation Comments Monocytes (test code = Monocytes) 7.1 2.0-12.0 [facility] Notes Date/Time Note Provider Source 2019-12-09 21:33:00-00:00 CLINICAL HISTORY: , - pain s/p DS [facility] EXAM: CT abdomen and pelvis without contrast 18:40 CDT COMPARISON: CT abdomen and pelvis with contrast 06/15/2019. TECHNIQUE: Volumetric CT acq uisition was performed through the abdomen and pelvis. Images in the axial, coronal, and sagittal planes were presented for interpretation. Precontrast, portal venous, and delayed phase images were obtained. This examination was perform ed according to our departmental dose optimization protocol, which includes automated exposure control, adjustment of the mA and/or kV according to the patient size and/or use of iterative reconstruction technique. Radiation dose/contrast: Contrast amount/type: 80ML OMNI 350 + 50ML OMNI 300 PO CONTRAST DLP: 927.10 FINDINGS: The lung bases are clear. Th e visualized cardiomediastinal structures within normal limits. Within the upper abdomen, th e liver and spleen are normal in size and morphology. The gallbladder is surgically absent. There is no intra or extrahepatic biliary ductal dilation. The pancreas and adrenal glands are normal in ap pearance. The right kidney is normal i n size and the right ureter is normal in course and caliber. There are no right renal calculi, distal obstructing stones, or evidence of hydronephrosis/hydroureter. The left kidney is normal i n size and the left ureter is normal in course and caliber. There are no left renal calculi, distal obstructing stones, or evidence of hydronephrosis/hydroureter. There are surgical changes from duodenal switch procedure. There is normal transit of contrast to small bow el. There is distention of small bowel in the mid and lower abdomen measuring up to 3.7 cm in diameter (stable). There is no evidence of henny l obstruction. The appendix is not well visualized. The colon is stool filled and otherwise unremark able. Within the pelvis, the bladder and rectum are no rmal. The uterus and ovaries are age-appropriate. There are no pathologically enlarged inguinal, retroperitoneal, portacaval, or mesenteric lymph nodes. The soft tissue structures of the abdominal wall are normal in appearance. The visualized osseous structures within normal limits for the patient's age. The abdominal aorta and its primary bran ches are normal in course and caliber. IMPRESSION: 1. No acute intra-abdominal process. 2. Stable surgical changes f rom duodenal sweep without evidence of bowel obstruction or other complication. 3. Status post cholecystectomy 2019-06-15 18:26:27-00:00 Abdomen/Pelvis w IV contrast CT 06/15/19 20 15:24 CDT [facility] INDICATION: Abdominal pain, acute - Bariatric protocol; history of duodenal switch and previous internal hernia COMPARISON: None. TECHNIQUE: Helical acquisiti on of the abdomen and pelvis was obtained from the lung bases to the pubic symphysis. Axial, sagittal and coronal images MPR's were interpreted. This exam was perfor med according to our [facility] ent dose optimization protocol, which includes automated exposure control, adjustment of the mA and/or kV according to patient size and/or use of iterative reconstruction technique. IV contrast: 96 cc Omnipaque 350 Enteric contrast: Omnipaque DLP: 662 mGy-cm FINDINGS: Lower thorax: Visualized portions are unremarkab le. Liver/Gallbladder/Biliary tr ee: Liver is unremarkable. The patient is status post cholecystectomy. No biliary duct dilation. Pancreas: Unremarkable. Spleen: Unremarkable. Adrenals: Unremarkable. Kidneys/Ureters/Bladder: Unremarkable. Gastrointestinal tract: Stat us post duodenal switch procedure. Oral contrast material is seen well throughout the small bowel. No evidence seen for bowel obstruction or leakage of contrast material. Reproductive organs: Unremarkable. Peritoneum/Mesentery/Retrope ritoneum: Mild amount of free fluid seen within the pelvis. Lymph nodes: Unremarkable. Vasculature: No abdominal aortic aneurysm. Bones/Soft tissues: No acute abnormality. No suspicious osteoblastic or osteolytic lesions. IMPRESSION: 1. Status post duodenal swit ch procedure. Oral contrast material is seen well throughout the small bowel. No evidence seen for bowel obstruction or leakage of contrast material."
[2022-10-07] MEDS ORDERED: ONDANSETRON 4 MG/2 ML VIAL ONE ×2 (14:31→17:00)
[2022-10-07] MEDS ORDERED: MORPHINE 4 MG/ML SYR ONE ×2 (14:31→17:00)
[2022-10-07] MEDS ORDERED: NA CHLORIDE 0.9% 1,000 ML ONE ×2 (14:31→20:15)
[2022-10-07] MEDS ORDERED: FAMOTIDINE 20 MG/2 ML VIAL IV ONE (14:32)
[2022-10-07 14:59] LABS: Absolute Lymphocytes (CBC) 1.8 K/uL (0.7-4.9); Hematocrit 33.8 % (36.0-45.0); Lymphocytes % 22.1 % (15.3-44.8); MCV 72.1 fL (80-100); MPV 9.3 fL (7.6-11.3); Platelets 282 thou/uL (152-406); RBC Red Blood Cell Count 4.69 M/uL (3.86-4.86)
[2022-10-07 15:14] LABS: Albumin 4.2 g/dL (3.4-5.0); Bilirubin Total 0.3 mg/dL (0.2-1.0); Potassium 4.1 mEq/L (3.5-5.1); Protein, Total 7.6 g/dL (6.4-8.2)
[2022-10-07 16:37] LABS: Specific Gravity 1.015 (1.005-1.030)
[2022-10-07 16:38] LABS: Specific Gravity 1.015 (1.005-1.030); Urine Bacteria None Seen /HPF (<20); Urine Bilirubin NEGATIVE (Negative); Urine Blood Negative (Negative); Urine Clarity Extremely Turbid (Clear); Urine Color Light-Yellow (Yellow); Urine Glucose NEGATIVE (Negative); Urine Mucus Slight /HPF (None Seen); Urine Protein NEGATIVE (Negative); Urine RBC <5 /HPF (None Seen); Urine Urobilinogen Normal (Normal); Urine pH 5.5 (5.0-7.0)
--- NOTE | 2022-10-07 17:02 | RAD REPORT ---
EXAM DESCRIPTION: CTAbdomen Pelvis W Contrast - 10/07/2022 4:53 pm CLINICAL HISTORY: Abdominal pain. ABD PAIN COMPARISON: Abdomen Pelvis W Contrast dated 02/23/2017 TECHNIQUE: Biphasic CT imaging of the abdomen and pelvis was performed with 100 ml non-ionic IV cont rast. All CT scans are performed using dose optimization technique as appropriate and may include automated exposure control or mA/KV adjustment according to patient size. FINDINGS: The lung bases are clear.Cholecystectomy clips. The liver, spleen, pancreas, adrenal glands and kidneys are within normal limits. There is distention of numerous small bowel loops significant mesenteric edema. There is a twisting o f the small bowel loops noted in the inferior mesentery. The findings suggest small bowel volvulus. T here is marked small bowel edema fluid in the abdomen. No free air seen. No evidence of significant lymphadenopathy. No suspicious bony findings. IMPRESSION: There is likely volvulus involving the small bowel resulting in mechanical obstruction a s well as signs vascular insufficiency/ischemic bowel. Advise surgical consultation. Significant thickening of small bowel loops which are involved in this process as well as mild free f luid in the pelvis.
[2022-10-07] MEDS ORDERED: HYDROMORPHONE HCL 1 MG/ML INJ ONE ×2 (18:25→19:59)
[2022-10-07] MEDS ORDERED: METOCLOPRAMIDE 10 MG/2mL INJ ONE (18:35)
[2022-10-07] MEDS ORDERED: PIPERACIL/TAZO 3.375 GM VIAL IV ONE (19:03)
[2022-10-07] MEDS ORDERED: NA CHLORIDE 0.9% 100 ML ONE (19:03)
[2022-10-07] MEDS ORDERED: PROMETHAZINE INJ 25 MG/ML AMP ONE (22:59)
[2022-10-07] MEDS ORDERED: PANTOPRAZOLE 40 MG INJ ONE (23:00)
[2022-10-07] MEDS ORDERED: FENTANYL CITR 100 MCG/2 ML ONE (23:06)
[2022-10-08 01:18] VITALS: TEMP 97.4
[2022-10-08 01:23] VITALS: BP 124/70; O2SAT 97
--- NOTE | 2022-10-08 16:30 | EKG ---
Test Date: 2022-10-07 Test Time: 15:03:48 Substation Mechanic: RYAN MEASUREMENT RESULTS: Intervals: Rate: 104 [place]: QRSD: 84 QT: 354 QTc: 465 [place]nard: P: [place]: QRS: 78 T: 63 INTERPRETIVE STATEMENTS: Atrial fibrillation with rapid ventricular response Nonspecific ST abnormality Abnormal ECG Compared to ECG 06/17/2016 14:25:09 ST (T wave) deviation now present Sinus bradycardia no longer present Sinus arrhythmia no longer present Electronically Signed On 10-08-22 16:27:03 CDT by Gary Jasso
--- NOTE | 2022-10-08 23:23 | EDPHYS ---
Physician Documentation [facility] Name: Jacey Elias Age: 27 yrs Sex: Female : 1995 Arrival Date: 10/07/2022 Time: 14:01 Bed 6 Private MD: ED Physician Chan Chun Historical: - Allergies: 10/07 14:37 No Known Allergies; mb9 - Home Meds: 14:37 Unable to obtain [Active]; mb9 - PMHx: 14:37 Unable to Obtain; mb9 - Immunization history:: Adult Immunizations up to date. - Social history:: Smoking status: Patient denies any tobacco usage or history of. Vital Signs: 14:08 BP 132 / 90; Pulse 45; Resp 18; Temp 97.4; Pulse Ox 100% on R/A; Weight 83.91 kg; mb9 Height 5 ft. 7 in. ; Pain 10/10; 15:24 BP 124 / 76; Pulse 108; Resp 20 S; Pulse Ox 100% on R/A; Pain 10/10; kc6 17:05 BP 118 / 75; Pulse 104; Resp 20 S; Pulse Ox 99% on R/A; Pain 10/10; kc6 18:44 BP 114 / 69; Pulse 72; Resp 20 S; Pulse Ox 100% on R/A; Pain 10/10; kc6 20:00 BP 124 / 70; Pulse 88; Resp 20; Pulse Ox 97% on R/A; vc1 14:08 Body Mass Index 28.97 (83.91 kg, 170.18 cm) mb9 14:08 Pain Scale: Adult mb9 15:24 Pain Scale: Adult kc6 17:05 Pain Scale: Adult kc6 18:44 Pain Scale: Adult kc6 MDM: 14:15 Patient medically screened. ci 17:46 ED course: General surgery paged, no answer. Lactate ordered. ci 18:43 ED course: still awaiting gen surg call back. Family provided number for Dr. Ames ci patient's surgeon and request that we contact her. I paged Dr. Isaac and spoke with on-call physician Dr. Pleitez who stated will call back in 10 mins. Patient empirically covered with zosyn. 19:06 ED course: Dr. Oh called back and stated to speak to Dr. Monroy as Dr. Ames was ci only covering for him. I spoke with Dr. Monroy who stated to transfer to [facility] and admit to hospitalist and he will see the patient. 20:15 ED course: Patient accepted by Dr. Del Valle, hospitalist at [facility] . ci 10/07 14:42 Order name: CBC with Diff; Complete Time: 15:59 kc6 10/07 20:54 Interpretation: HGB 10.4; mild anemia EKG obtained shows sinus tachycardia, HR 104, QTC ci 465. 10/07 14:42 Order name: CMP; Complete Time: 15:59 kc6 10/07 15:59 Interpretation: Within normal limits. ci 10/07 14:42 Order name: Lipase; Complete Time: 15:59 kc6 10/07 15:59 Interpretation: Within normal limits. ci 10/07 14:42 Order name: Test, Urine; Complete Time: 16:40 kc6 10/07 14:42 Order name: Urinalysis w/ reflexes; Complete Time: 16:40 6 10/07 18:10 Order name: Lactate w/ 2H reflex if indic.; Complete Time: 18:34 EDMS 10/07 23:14 Order name: Glucose, Ancillary Testing EDKS 10/07 14:42 Order name: CT Abd/Pelvis - IV Contrast Only; Complete Time: 17:44 kc6 10/07 17:45 Interpretation: Per Radiologist's finding(s): IMPRESSION: There is likely volvulus ci involving the small bowel resulting in mechanical obstruction as well as signs vascular insufficiency/ischemic bowel. Advise surgical consultation. Significant thickening of small bowel loops which are involved in this process as well as mild free fluid in the pelvis. 10/07 14:17 Order name: IV Saline Lock; Complete Time: 14:32 ci 10/07 14:17 Order name: Labs collected and sent; Complete Time: 14:32 ci 10/07 16:41 Order name: NPO; Complete Time: 16:48 ci Administered Medications: 14:23 Drug: Ondansetron IVP 4 mg Route: IVP; Site: left antecubital; mb9 15:34 Follow up: Response: No adverse reaction; Nausea unchanged; Vomiting unchanged [facility] 14:25 Drug: Famotidine IVP 20 mg Route: IVP; Site: left antecubital; mb9 15:34 Follow up: Response: No adverse reaction kc6 14:40 Drug: NS 0.9% IV 1000 ml Route: IV; Rate: 1 bolus; Site: left antecubital; kc6 14:40 Drug: morphine IVP or IV 4 mg Route: IVP; Infused Over: 4 mins; Site: left antecubital; kc6 15:34 Follow up: Response: No adverse reaction; Pain is unchanged, physician notified; RASS: kc6 Restless (+1) 17:04 Drug: morphine IVP or IV 4 mg Route: IVP; Infused Over: 4 mins; Site: left antecubital; kc6 17:49 Follow up: Response: No adverse reaction; Pain is unchanged, physician notified; RASS: kc6 Restless (+1) 17:04 Drug: Ondansetron IVP 4 mg Route: IVP; Site: left antecubital; kc6 17:49 Follow up: Response: No adverse reaction; Nausea unchanged; Vomiting unchanged kc6 18:21 Drug: HYDROmorphone IVP 1 mg Route: IVP; Site: left antecubital; kc6 19:00 Follow up: Response: No adverse reaction; Pain is decreased; RASS: Alert and Calm (0) kc6 18:23 Not Given (Physician Discretion): Prochlorperazine IVP 5 mg IVP once kc6 18:28 Drug: metoCLOPramide IVP 10 mg Route: IVP; Site: left antecubital; kc6 19:00 Follow up: Response: No adverse reaction; Nausea is decreased; Vomiting decreased kc6 20:02 Drug: Piperacillin-Tazobactam IVPB 3.375 grams Route: IVPB; Infused Over: 60 mins; vc1 Site: left antecubital; 20:02 Drug: HYDROmorphone IVP 1 mg Route: IVP; Site: left antecubital; vc1 20:22 Drug: NS 0.9% IV 1000 ml Route: IV; Rate: 1000 ml; Site: left antecubital; vc1 23:04 Drug: Promethazine IVP 12.5 mg Route: IVP; Site: left forearm; vc1 23:22 Follow up: Response: administered at transfer vc1 23:04 Drug: Pantoprazole IVP 40 mg Route: IVP; Site: left forearm; vc1 23:22 Follow up: Response: administered at transfer vc1 23:04 Drug: fentaNYL (PF) IVP 25 mcg Route: IVP; Site: left forearm; vc1 23:21 Follow up: Response: administered at transfer vc1 Disposition Summary: 10/07/22 19:38 Transfer Ordered Transfer Location: [facility] ci Reason: Higher level of care ci Condition: Serious ci Problem: new ci Symptoms: are unchanged ci Accepting Physician: Hospitalist(10/07/22 23:23) vc1 Diagnosis - Volvulus ci - Other intestinal obstruction ci Forms: - Medication Reconciliation Form ci - SBAR form ci Signatures: Dispatcher [employer] EDMS Becca Hernandez RN RN vc1 Candice Bain RN RN kc6 Lisandra Monreal RN RN mb9 Chan Chun ci Corrections: (The following items were deleted from the chart) 14:54 14:22 Abdomen ordered. EDMS EDMS 19:39 19:38 Hospitalist ci ci 20:54 15:59 HGB 10.4; mild anemia. ci ci 23:23 19:39 Hospitalist ci vc1
--- NOTE | 2022-10-08 23:23 | ER ---
Nurse's Notes [facility] Name: Jacey Elias Age: 27 yrs Sex: Female : 1995 Arrival Date: 10/07/2022 Time: 14:01 Bed 6 Private MD: Diagnosis: Volvulus;Other intestinal obstruction Presentation: 10/07 14:08 Chief complaint: Parent and/or Guardian states: "Around 1300 today, she started having mb9 severe abdomen pain. She started vomiting and has been screaming from the pain. 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 Coronavirus screen: At this time, the client does not indicate any symptoms associated with coronavirus-19. Ebola Screen: No symptoms or risks identified at this time. Initial Sepsis Screen: Does the patient meet any 2 criteria? No. Patient's initial sepsis screen is negative. Does the patient have a suspected source of infection? No. Patient's initial sepsis screen is negative. Risk Assessment: Do you want to hurt yourself or someone else? Patient reports no desire to harm self or others. Onset of symptoms was October 07, 2022. 14:08 Method Of Arrival: Ambulatory mb9 14:08 Acuity: RASHAWN 3 mb9 Triage Assessment: 14:08 General: Appears uncomfortable, Behavior is agitated, uncooperative. Pain: Complains of mb9 pain in abdomen. 14:08 Neuro: Mckenzie Agitation-Sedation Scale (RASS): 0 - Alert and Calm Level of mb9 Consciousness is awake, Oriented to person. Respiratory: Airway is patent Respiratory effort is even, unlabored, Respiratory pattern is regular, symmetrical. GI: Pt is actively vomiting. Derm: Skin is intact, Skin is clammy, Skin is pale, Skin temperature is warm. Musculoskeletal: Range of motion: intact in all extremities. Historical: - Allergies: 14:37 No Known Allergies; mb9 - Home Meds: 14:37 Unable to obtain [Active]; mb9 - PMHx: 14:37 Unable to Obtain; mb9 - Immunization history:: Adult Immunizations up to date. - Social history:: Smoking status: Patient denies any tobacco usage or history of. Screenin:21 [facility] ED Fall Risk Assessment (Adult) History of falling in the last 3 months, kc6 including since admission No falls in past 3 months (0 pts) Confusion or Disorientation No (0 pts) Intoxicated or Sedated No (0 pts) Impaired Gait No (0 pts) Mobility Assist Device Used No (0 pt) Altered Elimination No (0 pt) Score/Fall Risk Level 0 - 2 = Low Risk. Abuse screen: Denies threats or abuse. Denies injuries from another. Nutritional screening: No deficits noted. Tuberculosis screening: No symptoms or risk factors identified. Assessment: 14:15 General: Appears distressed, uncomfortable, Behavior is cooperative, appropriate for kc6 age, restless. Pain: Complains of pain in abdomen Pain does not radiate. Pain currently is 10 out of 10 on a pain scale. Quality of pain is described as sharp, stabbing, Pain began 1 day ago. Is intermittent, Alleviated by medications, repositioning, Noted to be agitated, crying, grimacing, guarding, moaning, resistant to movement, restless, Also complains of no other associated symptoms. Neuro: Level of Consciousness is awake, alert, obeys commands, Oriented to person, place, time, situation, Appropriate for age. Cardiovascular: Heart tones S1 S2 present Capillary refill < 3 seconds. Respiratory: Airway is patent Trachea midline Respiratory effort is even, unlabored, Respiratory pattern is regular, symmetrical. GI: Abdomen is flat, non-distended, Pt is actively vomiting bile, clear fluid, Bowel sounds present X 4 quads. Abd is soft X 4 quads Reports nausea, vomiting. : No signs and/or symptoms were reported regarding the genitourinary system. EENT: No signs and/or symptoms were reported regarding the EENT system. Derm: No signs and/or symptoms reported regarding the dermatologic system. Skin is intact, is healthy with good turgor, Skin is pink, warm \\T\\ dry. Musculoskeletal: No signs and/or symptoms reported regarding the musculoskeletal system. Circulation, motion, and sensation intact. Capillary refill < 3 seconds, Range of motion: intact in all extremities. 15:15 Reassessment: No changes from previously documented assessment. Patient and/or family kc6 updated on plan of care and expected duration. Pain level reassessed. Patient is alert, oriented x 3, equal unlabored respirations, skin warm/dry/pink. 15:15 Reassessment: pt appears to still be moaning and screaming in pain, actively vomiting. kc provider notified, no new orders received at this time. 16:15 Reassessment: Patient appears in no apparent distress at this time. No changes from [facility] previously documented assessment. Patient and/or family updated on plan of care and expected duration. Pain level reassessed. Patient is alert, oriented x 3, equal unlabored respirations, skin warm/dry/pink. 17:15 Reassessment: Patient appears in no apparent distress at this time. No changes from [facility] previously documented assessment. Patient and/or family updated on plan of care and expected duration. Pain level reassessed. Patient is alert, oriented x 3, equal unlabored respirations, skin warm/dry/pink. 18:15 Reassessment: Patient appears in no apparent distress at this time. No changes from [facility] previously documented assessment. Patient and/or family updated on plan of care and expected duration. Pain level reassessed. Patient is alert, oriented x 3, equal unlabored respirations, skin warm/dry/pink. 19:00 Reassessment: per Dr. Escobar, plan is transfer pt to [facility] in [facility]. [facility] 20:24 Reassessment: No changes from previously documented assessment. Patient and/or family vc1 updated on plan of care and expected duration. Pain level reassessed. Patient states symptoms have not improved. 21:51 Reassessment: attempted to call report nurse was in a patient room will call back. sg5 Vital Signs: 14:08 BP 132 / 90; Pulse 45; Resp 18; Temp 97.4; Pulse Ox 100% on R/A; Weight 83.91 kg; mb9 Height 5 ft. 7 in. ; Pain 10/10; 15:24 BP 124 / 76; Pulse 108; Resp 20 S; Pulse Ox 100% on R/A; Pain 10/10; kc6 17:05 BP 118 / 75; Pulse 104; Resp 20 S; Pulse Ox 99% on R/A; Pain 10/10; kc6 18:44 BP 114 / 69; Pulse 72; Resp 20 S; Pulse Ox 100% on R/A; Pain 10/10; kc6 20:00 BP 124 / 70; Pulse 88; Resp 20; Pulse Ox 97% on R/A; vc1 14:08 Body Mass Index 28.97 (83.91 kg, 170.18 cm) mb9 14:08 Pain Scale: Adult mb9 15:24 Pain Scale: Adult kc6 17:05 Pain Scale: Adult kc6 18:44 Pain Scale: Adult kc6 ED Course: 14:08 Patient arrived in ED. mb9 14:12 Triage completed. mb9 14:12 Arm band placed on. mb9 14:15 Chan Chun is Attending Physician. ci 14:33 Inserted saline lock: 22 gauge in left antecubital area, using aseptic technique. mb9 14:39 Candice Bain, GAUTAM is Primary Nurse. kc6 15:21 Patient has correct armband on for positive identification. Bed in low position. Call kc6 light in reach. Side rails up X2. Adult w/ patient. 15:33 Radiology exam delayed due to test not completed at this time. ls3 16:55 CT Abd/Pelvis - IV Contrast Only In Process Unspecified. EDMS 18:11 Lactate w/ 2H reflex if indic. Sent. kc6 19:00 Report given to GAUTAM Avila \\T\\ GAUTAM Hudson. kc6 19:34 Initiated transfer to [facility], transfer center ([place]) spoke wm with Dr. Chun to finish initiating. 21:00 Called to get update regarding acceptance, spoke with Erica, still working on transfer. wm 21:13 Pt accepted for transfer to [facility] by Dr. Del Valle per [facility]. wm 22:00 EMS couldn't accept Pt for transport, [facility] accepted with an ETA of 2230. wm 22:46 No provider procedures requiring assistance completed. Patient transferred, IV remains vc1 in place. Administered Medications: 14:23 Drug: Ondansetron IVP 4 mg Route: IVP; Site: left antecubital; mb9 15:34 Follow up: Response: No adverse reaction; Nausea unchanged; Vomiting unchanged kc6 14:25 Drug: Famotidine IVP 20 mg Route: IVP; Site: left antecubital; mb9 15:34 Follow up: Response: No adverse reaction kc6 14:40 Drug: NS 0.9% IV 1000 ml Route: IV; Rate: 1 bolus; Site: left antecubital; kc6 14:40 Drug: morphine IVP or IV 4 mg Route: IVP; Infused Over: 4 mins; Site: left antecubital; kc6 15:34 Follow up: Response: No adverse reaction; Pain is unchanged, physician notified; RASS: kc6 Restless (+1) 17:04 Drug: morphine IVP or IV 4 mg Route: IVP; Infused Over: 4 mins; Site: left antecubital; kc6 17:49 Follow up: Response: No adverse reaction; Pain is unchanged, physician notified; RASS: kc6 Restless (+1) 17:04 Drug: Ondansetron IVP 4 mg Route: IVP; Site: left antecubital; kc6 17:49 Follow up: Response: No adverse reaction; Nausea unchanged; Vomiting unchanged kc6 18:21 Drug: HYDROmorphone IVP 1 mg Route: IVP; Site: left antecubital; kc6 19:00 Follow up: Response: No adverse reaction; Pain is decreased; RASS: Alert and Calm (0) kc6 18:23 Not Given (Physician Discretion): Prochlorperazine IVP 5 mg IVP once kc6 18:28 Drug: metoCLOPramide IVP 10 mg Route: IVP; Site: left antecubital; kc6 19:00 Follow up: Response: No adverse reaction; Nausea is decreased; Vomiting decreased kc6 20:02 Drug: Piperacillin-Tazobactam IVPB 3.375 grams Route: IVPB; Infused Over: 60 mins; vc1 Site: left antecubital; 20:02 Drug: HYDROmorphone IVP 1 mg Route: IVP; Site: left antecubital; vc1 20:22 Drug: NS 0.9% IV 1000 ml Route: IV; Rate: 1000 ml; Site: left antecubital; vc1 23:04 Drug: Promethazine IVP 12.5 mg Route: IVP; Site: left forearm; vc1 23:22 Follow up: Response: administered at transfer vc1 23:04 Drug: Pantoprazole IVP 40 mg Route: IVP; Site: left forearm; vc1 23:22 Follow up: Response: administered at transfer vc1 23:04 Drug: fentaNYL (PF) IVP 25 mcg Route: IVP; Site: left forearm; vc1 23:21 Follow up: Response: administered at transfer vc1 Medication: 23:23 VIS not applicable for this client. vc1 Outcome: 19:38 ER care complete, transfer ordered by . ci 23:22 Transferred by ground EMS to other acute care facility: [facility] in [address] Transfer form completed. X-rays sent w/ patient. 23:22 Condition: good 23:23 Patient left the ED. [facility] Signatures: Dispatcher [employer] EDMS Yovany Sebastian ls3 Nydia Thomason Vanessa RN RN vc1 Candice Bain RN RN [id number] Jocelin, Lisandra Darby, RN RN mb9 Margarita Anguiano RN RN sg5 Chan Chun ci Corrections: (The following items were deleted from the chart) 15:22 14:08 Acuity: RASHAWN 2 mb9 mb9
== END 2022-10-07 23:23 | disposition short-term general hospital (02) ==
LOC: ER 14:01
DX: K56.2 Volvulus (principal); K56.699 Other intestinal obstruction unspecified as to partial versus complete obstruction
CPT/HCPCS: 93005; 85025; 81001; 36415; 81025; 82947; 83605; 83690; 80053; 74177; 99285; Q9967; J2550; J2765; J2543; C9113; J3010; J1170 ×2; J2405 ×2; J7030 ×2